=== PATIENT | male | born 1950 | race Caucasian/White ===

== ENCOUNTER 2018-01-09 11:54 | Inpatient (IN) | payer MEDICARE, OTHER ==
[~2018-01-09] VITALS: Ht 190.5 cm; Wt 92.1 kg
[2018-01-09] MEDS ORDERED: TEMA30CA PO (12:21)
[2018-01-09] MEDS ORDERED: OMEP20CA10 PO (12:21)
[2018-01-09] MEDS ORDERED: UBID100C PO (12:21)
[2018-01-09] MEDS ORDERED: RISP0.253 PO (12:21)
[2018-01-09] MEDS ORDERED: LEVE750T10 PO (12:21)
[2018-01-09] MEDS ORDERED: ACETAMINOPHEN 325 MG TABLET PO PRN (13:30)
[2018-01-09] MEDS ORDERED: ZOLPIDEM TARTRATE 5 MG TABLET PO PRN (13:30)
[2018-01-09] MEDS ORDERED: LORAZEPAM 0.5 MG TABLET PO PRN (13:30)
[2018-01-09] MEDS ORDERED: MAG HYDROX/AL HYDROX/SIMETH 30 ML UDC PO PRN (13:30)
[2018-01-09] MEDS ORDERED: MAGNESIUM HYDROXIDE 30 ML UDC PO PRN (13:30)
--- NOTE | 2018-01-09 14:35 | NUR ---
ADMITTED A 67 YEARS OLD MALE ON 515 FOR GD. PT. WANDERS IN THE NEIGHBORHOOD, HALLUCINATING, AGITATED AND NON COMPLIANT WITH CARE. PT. ARRIVED IN THE UNIT AMBULANCE AND TRANSPORTED VIA A GURNEY. UPON FACE TO FACE ASSESSMENT PT. IS ALERT/ ORIENTED X2, AMBULATORY, PT. IS WITH FLIGHT OF IDEAS AND WITH DISORGANIZED THOUGHTS, REFUSED TO SIGN THE ADMISSION PAPERS, SKIN ASSESSMENT DONE, V/S TAKEN AND CONTRABAND DONE. DR. ANDERS MADE AWARE OF THE ADMISSION AND WITH ORDERS. WALT BARNES AWARE OF THE ADMISSION AND RECONCILED MEDS. MARIBEL NOTIFIED ABOUT THE ADMISSION. WILL CONTINUE TO MONITOR FOR SAFETY.
--- NOTE | 2018-01-09 15:10 | NUR ---
AT ABOUT 1455 PT HAD SEIZURE IN THE DINING ROOM, CALLED RAPID RESPONSE. V/S TAKEN : BP 153/99, [place]. 80 AND OXYGEN SAT OF 93%. PT. HAD SEIZURE FOR 30 SECONDS DURATION. CALLED WALT BARNES AND ORDERED ATIVAN 1 MG IM X1 AND TO GIVE THE DOSE OF KEPPRA ONCE PT. IS AWARE. Addendum: 01/09/18 at 1558 by HESHAM GOLD RN TO GIVE KEPPRA ONCE PT. IS AWAKE. Addendum: 01/09/18 at 1745 by HESHAM GOLD RN SISTER MADE OF THE INCIDENT
[2018-01-09] MEDS ORDERED: LORAZEPAM INJ 2 MG/ML VIAL IM ONE (15:30)
[2018-01-09 15:45] VITALS: BP 153/99
[2018-01-09 16:00] VITALS: BP 116/79
[2018-01-09] MEDS ORDERED: LEVETIRACETAM (250 MG) 250 MG TABLET PO ONE (16:30)
--- NOTE | 2018-01-09 17:31 | NUR ---
WALT BARNES CAME IN THE UNIT AND EXAMINED THE PT.
[2018-01-09] MEDS: FAMOTIDINE (20 MG) 20 MG TABLET PO SCH (21:17)
[2018-01-09] MEDS: LEVETIRACETAM (250 MG) 250 MG TABLET PO SCH (21:17)
[2018-01-10 08:00] VITALS: BP 115/59
[2018-01-10 08:29] LABS: ALBUMIN 3.6 g/dL (3.4-5.0); CALCIUM, SERUM 9.1 mg/dL (8.5-10.1); POTASSIUM 3.9 mmol/L (3.5-5.1); TOTAL PROTEIN, SERUM 7.2 g/dL (6.4-8.2)
[2018-01-10] MEDS: LEVETIRACETAM (250 MG) 250 MG TABLET PO SCH ×2 (08:43→20:59)
[2018-01-10] MEDS: FAMOTIDINE (20 MG) 20 MG TABLET PO SCH ×2 (08:43→20:59)
[2018-01-10 16:03] VITALS: BP 137/83
[2018-01-10] MEDS: risperiDONE 1 MG TABLET PO SCH (16:41)
[2018-01-10 20:00] VITALS: BP 128/88
--- NOTE | 2018-01-10 20:00 | NUR ---
GPS RN NOTE: RECEIVED PATIENT AWAKE AND ORIENTED X 2 IN CHAIR IN TV ROOM. AMBULATORY WITH WALKER. PATIENT CONTINUES TO HAVE DISORGANIZED THOUGHTS AND AGITATED ABOUT AND REPEATING SELF ABOUT HIS SISTER HANGING UP WHEN HE CALLED HER TODAY. PER HIS REQUEST, ASSISTED TO CALL HER ON PHONE AGAIN WITH HIM AND HE SAID THE BROTHER IN LAW ANSWERED AND HUNG UP ON HIM. DENIES SI, HI, AND PAIN. WILL CONTINUE TO OFFER REALITY ORIENTATION NEEDED AND MONITOR Q 15 MINUTES FOR COMFORT AND SAFETY.
[2018-01-10] MEDS: DIVALPROEX SODIUM 500 MG TABLET.DR PO SCH (20:59)
--- NOTE | 2018-01-10 21:00 | NUR ---
PT REFUSED BLOOD DRAW FOR VERIFICATION CLERK TWICE. LAB CANCELLED ORDER AND REQUESTED REORDER FOR AM. WILL ALSO ENDORSE TO NEXT SHIFT.
[2018-01-11 08:00] VITALS: BP 135/66
[2018-01-11] MEDS: FAMOTIDINE (20 MG) 20 MG TABLET PO SCH ×2 (09:09→21:31)
[2018-01-11] MEDS: risperiDONE 1 MG TABLET PO SCH ×2 (09:09→17:21)
[2018-01-11] MEDS: DIVALPROEX SODIUM 500 MG TABLET.DR PO SCH ×2 (09:09→21:31)
[2018-01-11] MEDS: LEVETIRACETAM (250 MG) 250 MG TABLET PO SCH ×2 (10:54→21:30)
[2018-01-11 16:10] VITALS: BP 100/63
[2018-01-11 20:03] VITALS: BP 107/68
[2018-01-12 08:00] VITALS: BP 112/69
[2018-01-12] MEDS: risperiDONE 1 MG TABLET PO SCH ×2 (08:57→17:44)
[2018-01-12] MEDS: LEVETIRACETAM (250 MG) 250 MG TABLET PO SCH ×2 (08:58→21:26)
[2018-01-12] MEDS: DIVALPROEX SODIUM 500 MG TABLET.DR PO SCH ×2 (08:58→21:26)
[2018-01-12] MEDS: FAMOTIDINE (20 MG) 20 MG TABLET PO SCH ×2 (08:58→21:26)
--- NOTE | 2018-01-12 11:24 | NUR ---
[id number]: TOOK PICTURE OF LEFT FOOT WOUND POSSIBLY A CALUS AND BIG TOE ON THE LEFT FOOT HAS REDNESS. PT STATED, "I GOT THIS 20 YEARS AGO AND I PAID A LADY TO FILE IT DOWN." WOUND CONSULT ORDERED. SPOKE TO MAGAN WHO WILL REFER TO A VOLUNTEER PATIENT REPRESENTATIVE.
--- NOTE | 2018-01-12 13:50 | NUR ---
INITIAL DISCHARGE PLAN: Patient wishes to return home to [address] [facility] [address] [facility] [id number] . Per pt he is able to care for self and has been living in his apartment for 30 years. ARISTEO contacted pts sister Karol [phone] who stated that pt cannot care for himself at home due to him not taking his medication. Per pts sister she wishes for pt to be discharged to a SNF. ARISTEO will help form a safe and proper discharge in collaboration with .
[2018-01-12 16:09] VITALS: BP 116/60
--- NOTE | 2018-01-12 19:30 | NUR ---
GPS RN NOTE, RECEIVED PATIENT AWAKE AND IN BED, NO S/S OR COMPLAINTS OF PAIN AT THIS TIME. PATIENT IS DISPLAYING NO S/S OF APPARENT DISTRESS AT THIS TIME. PATIENT BREATHING IS UNLABORED WITH EQUAL RISE AND FALL CHEST. PATIENT IS ALERT AND ORIENTED X 2 ON ROOM AIR WITH A SPO2 97% . PATIENT IS CONFUSED AT TIMES, DISORGANIZED, COOPERATIVE, ANXIOUS AT TIMES, AND NEEDS REDIRECTION. PATIENT DENIES SUICIDE IDEATIONS AND HOMICIDAL IDEATIONS AT THIS TIME. PATIENT EDUCATED ON THE USE OF THE CALL STOKES. PATIENT BED SIDE RAILS UP X 2 FOR SAFETY, BED IS LOCKED, LOW, AND I WILL CONTINUE TO MONITOR AND MAINTAIN SAFETY WITH THE HELP OF STAFF.
[2018-01-12 19:56] VITALS: BP 102/42
--- NOTE | 2018-01-13 06:45 | NUR ---
WOUND CARE CONSULT WOUND CARE RECEIVED CONSULT FOR LEFT FOOT WOUND. WOUND CARE WILL DEFER CONSULT AND ALL TREATMENT PLANS TO SURGICAL TEAM. PATIENT WITH VALERIE AT 22, WILL SEE PRN.
[2018-01-13 08:00] VITALS: BP 139/68
[2018-01-13 08:10] VITALS: BP 139/68
[2018-01-13] MEDS: risperiDONE 1 MG TABLET PO SCH ×2 (08:47→17:28)
[2018-01-13] MEDS: FAMOTIDINE (20 MG) 20 MG TABLET PO SCH ×2 (08:47→20:43)
[2018-01-13] MEDS: NEOMY SULF/BACITRAC ZN/POLY 15 GM TUBE TP SCH (08:47)
[2018-01-13] MEDS: DIVALPROEX SODIUM 500 MG TABLET.DR PO SCH ×2 (08:47→20:43)
[2018-01-13] MEDS: LEVETIRACETAM (250 MG) 250 MG TABLET PO SCH ×2 (08:47→20:43)
--- NOTE | 2018-01-13 11:32 | NUR ---
ARISTEO received a phone call from [facility] field property loss specialist [phone] who informed SW that pts brother has mailed payment for pts rent for this month.
[2018-01-13 16:00] VITALS: BP 139/68
[2018-01-13 16:12] VITALS: BP 119/66
[2018-01-13 19:55] VITALS: BP 121/90
[2018-01-14 08:00] VITALS: BP 119/83
[2018-01-14] MEDS: FAMOTIDINE (20 MG) 20 MG TABLET PO SCH ×2 (08:40→21:57)
[2018-01-14] MEDS: DIVALPROEX SODIUM 500 MG TABLET.DR PO SCH ×2 (08:41→21:57)
[2018-01-14] MEDS: NEOMY SULF/BACITRAC ZN/POLY 15 GM TUBE TP SCH (08:41)
[2018-01-14] MEDS: risperiDONE 1 MG TABLET PO SCH ×2 (08:41→16:55)
[2018-01-14] MEDS: LEVETIRACETAM (250 MG) 250 MG TABLET PO SCH ×2 (08:41→21:57)
[2018-01-14 16:00] VITALS: BP 141/79
[2018-01-14 20:20] VITALS: BP 110/67
--- NOTE | 2018-01-14 21:30 | NUR ---
GPS RN NOTE, RECEIVED PATIENT AWAKE AND IN BED, NO S/S OR COMPLAINTS OF PAIN AT THIS TIME. PATIENT IS DISPLAYING NO S/S OF APPARENT DISTRESS AT THIS TIME. PATIENT BREATHING IS UNLABORED WITH EQUAL RISE AND FALL CHEST. PATIENT IS ALERT AND ORIENTED X 2 ON ROOM AIR WITH A SPO2 99% . PATIENT IS CONFUSED AT TIMES, DISORGANIZED, COOPERATIVE, ANXIOUS AT TIMES, AND NEEDS REDIRECTION. PATIENT DENIES SUICIDE IDEATIONS AND HOMICIDAL IDEATIONS AT THIS TIME. PATIENT EDUCATED ON THE USE OF THE CALL STOKES. PATIENT BED SIDE RAILS UP X 2 FOR SAFETY, BED IS LOCKED, LOW, AND I WILL CONTINUE TO MONITOR AND MAINTAIN SAFETY WITH THE HELP OF STAFF.
[2018-01-15 08:00] VITALS: BP 131/82
[2018-01-15] MEDS: risperiDONE 1 MG TABLET PO SCH (08:58)
[2018-01-15] MEDS: FAMOTIDINE (20 MG) 20 MG TABLET PO SCH (08:58)
[2018-01-15] MEDS: LEVETIRACETAM (250 MG) 250 MG TABLET PO SCH (08:58)
[2018-01-15] MEDS: NEOMY SULF/BACITRAC ZN/POLY 15 GM TUBE TP SCH (09:02)
--- NOTE | 2018-01-15 09:21 | NUR ---
DR. ANDERS GAVE AN ORDER TO D/C HOLD AND D/C TODAY AND TO FOLLOW UP WITH PSYCH AND MEDICAL DOCTORS.
[2018-01-15] MEDS: DIVALPROEX SODIUM 500 MG TABLET.DR PO SCH (09:58)
--- NOTE | 2018-01-15 13:15 | NUR ---
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 cash. supervisor [employer] li agrees with discharge plan. [place] [id number] [facility] [address] [facility] [address]. pts' sister efra has been notified. he is alert oriented x 3 and ambulatory. calm and cooperative. denies s/i and/or h/i at time of discharge. no acute distress noted. vital sign stable condition. exitcare completed. medication prescription prescribed. skin care assessed and pictures taken. belongings returned. going on via taxi. left in stable condition.
--- NOTE | 2018-01-15 13:19 | NUR ---
DISCHARGE NOTE: Pt was discharged at 1:00pm via [facility] taxi voucher home to [address] [facility] [address] [facility] [address]. Pts sister Karol has been notified [phone] and does not agree with discharge plan as she feels pt should be discharged to [facility]. Pt is alert and oriented x4 and was able to participate in discharge planning with MD and SW. Pts mood was happy with congruent affect, pt denied visual/auditory hallucinations and denied suicidal/homicidal ideations. Pt will schedule a follow up appointment with Psychiatrist: Dr. Jose Luis Miles [address] [place] [address] [phone] and Customer Relations Advisor: Dr. Biju Mccormick [address] [place] [address] [phone]. The multidisciplinary exitcare form was done, printed, signed, and given to the patient.
== END 2018-01-15 13:15 | disposition home or self-care (01) | DRG 885 ==
LOC: GPS 11:54
PROVIDERS: ADMIT Psychiatry & Neurology Psychiatry; ATTEND Psychiatry & Neurology Psychiatry
DX: F31.64 Bipolar disorder, current episode mixed, severe, with psychotic features (principal); E43 Unspecified severe protein-calorie malnutrition; Z68.41 Body mass index [BMI] 40.0-44.9, adult; K21.9 Gastro-esophageal reflux disease without esophagitis; G40.909 Epilepsy, unspecified, not intractable, without status epilepticus; F03.90 Unspecified dementia, unspecified severity, without behavioral disturbance, psychotic disturbance, mood disturbance, and anxiety; E66.01 Morbid (severe) obesity due to excess calories; F41.9 Anxiety disorder, unspecified; I10 Essential (primary) hypertension; G47.00 Insomnia, unspecified; E11.9 Type 2 diabetes mellitus without complications; Z73.6 Limitation of activities due to disability; L85.3 Xerosis cutis; L84 Corns and callosities; M21.42 Flat foot [pes planus] (acquired), left foot; M21.40 Flat foot [pes planus] (acquired), unspecified foot; Z79.899 Other long term (current) drug therapy
CPT/HCPCS: 36415; 80053-TC; 80061-TC; 80164-TC; 82962-TC; J2060

== ENCOUNTER 2019-02-22 10:24 | Inpatient (IN) | payer MEDICAID, MEDICARE, OTHER ==
[~2019-02-22] VITALS: Ht 175.3 cm; Wt 87.1 kg
[2019-02-22] VITALS (24 sets, daily range): BP systolic 106–150; BP diastolic 69–94
[~2019-02-22 10:24] MED LIST: LEVE750T10 PO; OMEP20CA11 PO; RISP0.253 PO; TEMA30CA PO; UBID100C PO
--- NOTE | 2019-02-22 10:28 | NUR ---
PATIENT BIBRA FROM SNF FOR ALTERED MENTAL STATUS, PATIENT PREPARED FOR INTUBATION, DUE TO SHORTNESS OF BREATH. DR. FRANCES AT BEDSIDE.
--- NOTE | 2019-02-22 10:32 | NUR ---
PATIENT INTUBATED BY DR. FRANCES, ET SIZE 7.5, 23CM ON THE LIP, BILATERAL EQUAL CHEST RISE AND + BREATH SOUNDS. PATIENT SKIN COLOR CHANGED. APPLIED BILATERAL SOFT WRIST RESTRAINTS.
[2019-02-22] MEDS ORDERED: CARV3.12 PO (10:33)
[2019-02-22] MEDS ORDERED: DIVA-78 PO (10:33)
[2019-02-22] MEDS ORDERED: POTA20TA83 PO (10:33)
[2019-02-22] MEDS ORDERED: RIVA10TA PO (10:33)
[2019-02-22] MEDS ORDERED: FURO-144 PO (10:33)
[2019-02-22] MEDS ORDERED: SANDOZ PO (10:33)
[2019-02-22] MEDS ORDERED: RISP2TAB5 PO (10:33)
[2019-02-22] MEDS: PROPOFOL 100 ML IV PRN ×2 (10:33→17:50)
[2019-02-22] MEDS ORDERED: PROPOFOL 100 ML ONE (10:33)
[2019-02-22] MEDS ORDERED: FAMO20TA8 PO (10:33)
[2019-02-22] MEDS ORDERED: TAMS-12 PO (10:33)
[2019-02-22] MEDS ORDERED: LEVE500T20 PO (10:33)
--- NOTE | 2019-02-22 10:33 | NUR ---
PROPOFOL IV DRIP INITIATED, WILL TITRATE TO EFFECT.
--- NOTE | 2019-02-22 10:35 | NUR ---
PATIENT TAKEN TO CT WITH RT AND RN, VIA ACLS PROTOCOL.
--- NOTE | 2019-02-22 10:35 | NUR ---
Paged Dr. Bk KIRBY seasoner hand for Dr. Keller, awaiting to call back.
[2019-02-22 10:44] LABS: BASOPHILS % (AUTO) 0.4 % (0.0-2.0); EOSINOPHILS % (AUTO) 0.1 % (0.0-6.0); HEMATOCRIT 41 % (39-51); HEMOGLOBIN 13.2 g/dL (13.5-17.5); LYMPHOCYTES # (AUTO) 0.4 /CMM (0.8-4.8); LYMPHOCYTES % (AUTO) 4.4 % (20.0-44.0); MEAN CORPUSCULAR HGB CONC 33 g/dl (31.0-36.0); MEAN CORPUSCULAR VOLUME 100 fL (80-96); MONOCYTES # (AUTO) 1.4 /CMM (0.1-1.30); MONOCYTES % (AUTO) 16.1 % (2.0-12.0); NEUTROPHILS # (AUTO) 6.7 /CMM (1.8-8.9); PLATELET COUNT (AUTO) 185 /CMM (150-450); RED BLOOD CELL COUNT(AUTO) 4.05 MIL/uL (4.5-6.0); WHITE BLOOD COUNT (AUTO) 8.5 K/uL (4.3-11.0)
--- NOTE | 2019-02-22 10:46 | NUR ---
room 254
[2019-02-22 10:53] LABS: CALCIUM, SERUM 8.6 mg/dL (8.5-10.1); CARBON DIOXIDE 21 mmol/L (21-32); CHLORIDE 92 mmol/L (98-107); CREATININE 1.6 mg/dL (0.6-1.3); GLUCOSE 98 mg/dL (74-106); POTASSIUM 5.2 mmol/L (3.5-5.1); SODIUM SERUM 127 mmol/L (136-145); UREA NITROGEN, BLOOD 21 mg/dL (7-18)
--- NOTE | 2019-02-22 10:55 | NUR ---
PATIENT ON PROPOFOL IV 20MCG AT THIS TIME. EFFECTIVE, VITALS STABLE.
[2019-02-22 11:00] LABS: ALANINE AMINOTRANSFERASE 265 U/L (12-78); ALBUMIN 3.3 g/dL (3.4-5.0); ALKALINE PHOSPHATASE 168 U/L (46-116); ASPARTATE AMINOTRANSFERASE 311 U/L (15-37); BILIRUBIN,DIRECT 2.4 mg/dL (0.0-0.2); BILIRUBIN,TOTAL 3.5 mg/dL (0.2-1.0); TOTAL PROTEIN, SERUM 7.2 g/dL (6.4-8.2)
[2019-02-22] MEDS ORDERED: ETOMIDATE 2 MG/ML VIAL IV ONE (11:00)
[2019-02-22] MEDS ORDERED: SUCCINYLCHOLINE CHLORIDE 20 MG/ML VIAL IV ONE (11:00)
[2019-02-22 11:04] LABS: APPEARANCE,URINE Slightly Cloudy (CLEAR); BILIRUBIN,URINE MODERATE (NEGATIVE); BLOOD, URINE Small Ery/uL (NEGATIVE); COLOR,URINE Amber (YELLOW); KETONES,URINE Trace (NEGATIVE); LEUKOCYTE ESTERASE ,URINE Negative (NEGATIVE); NITRITE, URINE Negative (NEGATIVE); PH,URINE 5.5 (5.0-8.0); PROTEIN,URINE 100 mg/dl (NEGATIVE); UGLUCOSE Negative (NEGATIVE)
[2019-02-22 11:09] LABS: BACTERIA,URINE Few /HPF (None Seen); SQUAMOUS EPITHELIAL CELL,UR Rare /HPF (None Seen)
--- NOTE | 2019-02-22 11:09 | NUR ---
RT NOTE PT INTUBATED PER MD FRANCES ORDER. 7.5 ETT 23 CM AT LIP. ETT SECURE. CUFF INFLATED. VENTILATOR SETTINGS FOLLOW AC 16 600 100% +5. ALARMS SET PER PROTOCOL AND AUDIBLE. VENT PLUGGED IN TO RED OUTLET. AMBU BAG AT BED SIDE. NO DISTRESS NOTED. Addendum: 02/22/19 at 1114 by YONI FISCHER RT Amended: Links added.
[2019-02-22] MEDS ORDERED: PIPERACILLIN /TAZOBACTAM 3.375 G in IV D5W 50 ML IV ONE (11:30)
[2019-02-22] MEDS ORDERED: VANCOMYCIN 1 GM in IV D5W 250 ML IV ONE (11:30)
[2019-02-22 11:46] LABS: ABG BASE EXCESS -8.7 mmol/L; ABG OXYGEN SATURATION 99.6 % (92.0-98.5); ABG PCO2 38.6 mmHg (35.0-45.0); ABG PH 7.274 (7.350-7.450); ABG PO2 455.8 mmHg (75.0-100.0); AaDO2 218.6 mmHg; COHb 0.7 % (0.5-1.5); MetHb 0.4 % (0.0-1.5); O2Hb 98.5 % (94.0-97.0); PEEP,BG 5 cm H2O; SITE, ABG Right Radial; VT, ABG 600 mL
--- NOTE | 2019-02-22 11:53 | NUR ---
REPORT GIVEN TO DANIEL DYKES FOR JULIANN.
[2019-02-22] MEDS ORDERED: ZOLPIDEM TARTRATE 5 MG TABLET PO PRN (12:00)
[2019-02-22] MEDS ORDERED: ONDANSETRON HCL/PF 4 MG/2 ML VIAL IVP PRN (12:00)
[2019-02-22] MEDS ORDERED: MAGNESIUM HYDROXIDE 30 ML UDC PO PRN (12:00)
[2019-02-22] MEDS ORDERED: Z GUARD REMEDY 2 OZ OINT TP PRN (12:00)
[2019-02-22] MEDS ORDERED: PANTOPRAZOLE 40 MG VIAL IV SCH (12:00)
[2019-02-22] MEDS ORDERED: HYDROCODONE/APAP 5/325MG 1 EACH TABLET PO PRN (12:00)
[2019-02-22] MEDS ORDERED: LORAZEPAM INJ 2 MG/ML VIAL IV PRN (12:00)
--- NOTE | 2019-02-22 12:23 | NUR ---
PATIENT TRANSFERRED TO ICU ROOM 259 VIA ACLS PROTOCOL. RT AT BEDSIDE.
[2019-02-22] MEDS ORDERED: IV NS 0.9% 1,000 ML IV PRN (12:33)
[2019-02-22] MEDS: IV NS 0.9% 1,000 ML IV SCH ×2 (13:41→17:32)
[2019-02-22 13:44] LABS: LYMPHOCYTES % (MANUAL) 4 % (16-48); MONOCYTES % (MANUAL) 20 % (0-11.0); NEUTROPHILS % (MANUAL) 76 (42-76)
--- NOTE | 2019-02-22 13:50 | NUR ---
RT PATIENT REC'D TRANSFER FROM ER. PATIENT ORALLY INTUBATED ON [facility] WITH ORDERED SETTINGS. VENT ALARMS CHECKED + AUDIBLE. 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 PATIENT SUCTIONED WITH SMALL AMT PALE SEMITHICK SECRETIONS.. AMBU BAG AT HOB Addendum: 02/22/19 at 1529 by RAJAN DOLL RT Amended: Links added.
[2019-02-22] MEDS: DIVALPROEX SODIUM 500 MG TABLET.DR PO SCH (17:00)
[2019-02-22] MEDS: CARVEDILOL 3.125 MG TABLET PO SCH (17:00)
[2019-02-22] MEDS ORDERED: LEVETIRACETAM (500MG) 750 MG in IV NS 0.9% 100 ML IV SCH (17:00)
--- NOTE | 2019-02-22 18:07 | NUR ---
RN NOTES 1300-RECEIVED PATIENT FROM er VIA GURNEY. PATIENT ORALLY INTUBATED ON AC MODE OF VENTILATION. PATIENT ALSO ON PROPOFOL DRIP AT 20 MCG/KG/MIN. SAFETY MAINTAINED 1500-TITRATED PROPOFOL DRIP. PATIENT REPOSITIONED FOR COMFORT.NO SIGN OF PAIN. SEEN BY PELEG EARLIER. 1600-SEVERAL ATTEMPTS TO INSERT NGT/OGT, UNABLE TO PASS FEEDING TUBE . DR ALBA NOTIFIED PATIENT HAS KEPPRA ORDERED VIA NGT. 1800-PATIENT SISTER, AMRIK ANGUIANO, CALLED. UPDATED HER OF PATIENT STATUS. ENCOURAGED HER TO CALL TIME TO TIME.
--- NOTE | 2019-02-22 19:00 | NUR ---
RECEIVED PATIENT ORALLY INTUBATED ON AC MODE,SEDATED,+ MILD COUGH WHEN SUCTIONED,WILL TITRATE PROPOFOL DRIP TO SAS=3. WITHDRAWS TO PAIN. EXTREMELY EDEMATOUS LOWER EXTREMITIES ( FROM THIGHS TO BILATERAL FEET).NOT IN ANY DISTRESS,BREATHING NON LABORED. SEIZURE PRECAUTION/ ASPIRATION PRECAUTION IMPLEMENTED.COMFORT CARE DONE.
--- NOTE | 2019-02-22 19:15 | NUR ---
SEEN BY NEURO Chase HEIN ,[facility]
[2019-02-22] MEDS ORDERED: LEVETIRACETAM (500MG) 750 MG in IV NS 0.9% 100 ML IV ONE (20:00)
[2019-02-22] MEDS ORDERED: LEVETIRACETAM (250 MG) 250 MG TABLET PO SCH (21:00)
--- NOTE | 2019-02-22 21:00 | NUR ---
ATTEMPTED NGT AND OGT INSERTION,UNSUCCESSFUL AFTER SEVERAL TRY. WILL RE ATTEMPT LATER, PATIENT STARTED BLEEDING A LITTLE NASALLY(INR=4.1),WILL RE ATTEMPT ORAL INSERTION AGAIN LATER.
[2019-02-22] MEDS: FAMOTIDINE/PF INJ 20 MG/2 ML VIAL IV SCH (21:04)
[2019-02-22] MEDS: LEVETIRACETAM (500MG) 750 MG in IV NS 0.9% 100 ML IV SCH (21:05)
[2019-02-22] MEDS: TAMSULOSIN 0.4 MG CAP.SR.24H PO SCH (22:00)
--- NOTE | 2019-02-22 22:00 | NUR ---
UNABLE TO GIVE PO MEDS, NO NGT/OGT DUE TO UNSUCCESSFUL INSERTION EVEN BY THE DAYSHIFT RN.
[2019-02-23] VITALS (28 sets, daily range): BP systolic 95–128; BP diastolic 59–80
--- NOTE | 2019-02-23 | NUR ---
REMAINS STABLE,NOT IN ANY DISTRESS, OCCASIONALLY COUGHS AND GAGS AND TRIES TO GET OFF WRIST RESTRAINTS,WILL TITRATE PROPOFOL DRIP . ATTEMPTED OGT AND NGT INSERTION AGAIN THIS TIME BY CHARGE NURSE ,TUBE KEEPS COILING .
--- NOTE | 2019-02-23 02:00 | NUR ---
AM CARE DONE, SACRAL SKIN CARE DONE. TOLERATED TURNING WELL, NO SOB NOTED.PATIENT MORE RESPONSIVE, COUGHING ,GRIMACING TO PAIN.
[2019-02-23] MEDS: PROPOFOL 100 ML IV PRN ×4 (04:01→23:42)
[2019-02-23 04:11] LABS: BASOPHILS % (AUTO) 0.2 % (0.0-2.0); HEMATOCRIT 41 % (39-51); HEMOGLOBIN 13.4 g/dL (13.5-17.5); LYMPHOCYTES # (AUTO) 0.7 /CMM (0.8-4.8); MEAN CORPUSCULAR HGB CONC 33 g/dl (31.0-36.0); MEAN CORPUSCULAR VOLUME 97 fL (80-96); MONOCYTES # (AUTO) 1.6 /CMM (0.1-1.30); MONOCYTES % (AUTO) 11.9 % (2.0-12.0); NEUTROPHILS # (AUTO) 11.3 /CMM (1.8-8.9); NEUTROPHILS % (AUTO) 82.9 % (43.0-81.0); PLATELET COUNT (AUTO) 151 /CMM (150-450); RED BLOOD CELL COUNT(AUTO) 4.18 MIL/uL (4.5-6.0); WHITE BLOOD COUNT (AUTO) 13.6 K/uL (4.3-11.0)
[2019-02-23 04:30] LABS: BILIRUBIN,TOTAL 3.5 mg/dL (0.2-1.0); CALCIUM, SERUM 8.8 mg/dL (8.5-10.1); CREATININE 1.4 mg/dL (0.6-1.3); MAGNESIUM 2.1 mg/dL (1.8-2.4); PHOSPHORUS 4.6 mg/dL (2.5-4.9); POTASSIUM 4.3 mmol/L (3.5-5.1); TOTAL PROTEIN, SERUM 6.6 g/dL (6.4-8.2)
[2019-02-23 04:38] LABS: THYROID STIMULATING HORMONE 1.622 uIU/mL (0.358-3.74); URIC ACID 12.1 mg/dL (2.6-7.2)
--- NOTE | 2019-02-23 05:30 | NUR ---
STATUS UNCHANGED,NO SEIZURE ACTIVITY ALL NIGHT,REMAINS SEDATED ON PROPOFOL DRIP BUT EASILY AROUSABLE.ATTEMPTED TO INSERT NGT/OGT AGAIN ,UNSUCCESSFUL,TUBE COILING .
--- NOTE | 2019-02-23 07:00 | NUR ---
MORE RESPONSIVE THIS MORNING,GETTING A LITTLE RESTLESS AT TIMES, WITH STRONG COUGH AND GAG, MOVING ALL EXTREMITIES,MAINTAINED ON BILATERAL SOFT WRIST RESTRAINTS. NO SEIZURE EPISODE ALL NIGHT. REPORT GIVEN TO EMMY DYKES.
--- NOTE | 2019-02-23 07:15 | NUR ---
RN INITIAL NOTES RECEIVED PT INTUBATED, ON VENT. NO RESPIRATORY DISTRESS NOTED. NO SOB NOTED. NO SIGNS OF PAIN NOTED. HOB ELEVATED. SEDATED, ON DIPRIVAN AT 15MCG/KG/MIN. WILL TITRATE ACCORDINGLY. IV LINES IN PLACE. FC IN PLACE. NO HEMATURIA NOTED. BLE ELEVATED. BLE EDEMA NOTED. WILL CONTINUE TO MONITOR
--- NOTE | 2019-02-23 07:46 | NUR ---
PT RECEIVED IN ICU ORALLY INTUBATED ON MECHANICAL VENT W/ NOTED SETTINGS. VENT IN RED OUTLET, AMBUBAG AT BEDSIDE, VENT ALARMS CHECKED AND AUDIBLE. PT SX'ED AND LAVAGED PRN, BS EQUAL DIMINISHED. ETT PATENT, SECURED WITH ANCHOFAST, CLEAN AND DRY. NO RESP DISTRESS NOTED. PLAN IS TO CONTINUE CARE UNDER CURRENT MD ORDERS AND MONITOR FOR CHANGES.
[2019-02-23] MEDS: FAMOTIDINE/PF INJ 20 MG/2 ML VIAL IV SCH (08:02)
--- NOTE | 2019-02-23 08:13 | NUR ---
WOUND CARE CONSULT: PT PRESENTS WITH IMMOBILITY, RASH TO BUTTOCKS, SACRAL SCARRING, FOOT AND TOE DRY WOUNDS/CALLUSES AND LEFT LATERAL LOWER LEG WOUND, ALL PRESENT ON ADMISSION. 4+ PITTING EDEMA NOTED TO LOWER LEGS. RECOMMEND DPM CONSULT. DR DIAZ AWARE OF CONSULT REQUEST. PT ON FIRST STEP [facility]. ALL SKIN PROTECTION RECOMMENDATIONS DISCUSSED WITH NURSING STAFF. DEFER TO DPM FOR LOWER EXTREMITIES. WILL SEE PRN. IN AGREEMENT WITH PLAN OF CARE. CURRENT VALERIE SCORE IS 7. PT IS INTUBATED. Addendum: 02/23/19 at 0815 by FABIAN HIGGINS WNDNU Amended: Links added.
[2019-02-23 08:27] LABS: ABG BASE EXCESS -3.2 mmol/L; ABG PH 7.431 (7.350-7.450); AaDO2 84.6 mmHg; COHb 0.8 % (0.5-1.5); MetHb 0.4 % (0.0-1.5); O2Hb 97.8 % (94.0-97.0); SITE, ABG Right Radial; VENT MODE, BG AC 16 600 40% +5
[2019-02-23] MEDS: LEVETIRACETAM (500MG) 750 MG in IV NS 0.9% 100 ML IV SCH ×2 (08:33→21:25)
[2019-02-23] MEDS: FUROSEMIDE 40 MG/4 ML VIAL IV SCH ×3 (08:34→16:15)
[2019-02-23] MEDS: CARVEDILOL 3.125 MG TABLET PO SCH ×2 (08:34→16:12)
[2019-02-23] MEDS: DIVALPROEX SODIUM 500 MG TABLET.DR PO SCH (08:34)
[2019-02-23] MEDS ORDERED: LEVETIRACETAM (500MG) 750 MG in IV NS 0.9% 100 ML IV ONE (09:00)
[2019-02-23] MEDS ORDERED: ZOSYN IVPB 3.375 G in IV D5W 50ml IV ONE (10:00)
[2019-02-23] MEDS: CLOTRIMAZOLE 1% 15 GM TUBE TP SCH ×2 (11:22→16:13)
[2019-02-23] MEDS: VANCOMYCIN 1.25 GM in IV D5W 500 ML IV SCH ×2 (11:23→23:52)
[2019-02-23] MEDS ORDERED: FEE PK DOSING 1 MIN EA MC ONE (11:41)
[2019-02-23] MEDS ORDERED: VALPROATE 500 MG in IV D5W 100 ML IV ONE (12:00)
[2019-02-23] MEDS ORDERED: VALPROATE 500 MG in IV NS 0.9% 100 ML IV ONE (12:00)
--- NOTE | 2019-02-23 12:15 | NUR ---
RN NOTES [address] LORENZANA REGARDING VALPROIC LEVEL, 31. NO SEIZURE ACTIVITY NOTED. UNABLE TO INSERT NGT OR OGT. PER , [facility] WILL DO ROUNDS TODAY AND CHANGE DEPAKOTE TO IV. 0900 SEEN AND EXAMINED BY DR ARMENDARIZ. PT INTUBATED, ON VENT. NO RESPIRATORY DISTRESS NOTED. NO SOB NOTED. HOB ELEVATED. OFF SEDATION. PT OPENS EYES AND FOLLOW SIMPLE COMMANDS. AWARE OF LATEST ABG RESULT. WILL CONTINUE TO MONITOR 0930 SEEN AND EXAMINED BY DR ALBA. AWARE OF LATEST LAB VALUES AND IMAGING STUDIES. ORDERED CT ABDOMEN/PELVIS WO AND NM HIDA SCAN. WILL CONTINUE TO MONITOR 1200 SEEN AND EXAMINED BY [facility]. REVIEWED ALL MEDS AND LAB VALUES. NO SEIZURE ACTIVITY NOTED. ORDERED VALPROATE 500MG IV Q12. WILL CONTINUE TO MONITOR
[2019-02-23] MEDS ORDERED: PIPERACILLIN /TAZOBACTAM 3.375 G in IV D5W 100 ML IV SCH (14:00)
--- NOTE | 2019-02-23 15:26 | NUR ---
Pt taken to [facility] w/ RN. Placed on HT70 vent for transport and procedure. Ambubag, pulse ox and library monitor at bedside at all times. No resp distress noted. Pt back in room Addendum: 02/23/19 at 1527 by DALLAS CÁRDENAS RT Amended: Links added.
[2019-02-23] MEDS ORDERED: PANTOPRAZOLE 40 MG VIAL IV SCH (15:30)
[2019-02-23 16:05] LABS: IRON, SERUM 50 ug/dl (50-175); TOTAL IRON BINDING CAPACITY 250 ug/dl (250-450)
[2019-02-23 16:40] LABS: AMYLASE 22 U/L (25-115); LIPASE 85 U/L (73-393)
[2019-02-23 16:43] LABS: FERRITIN 2639 ng/mL (8-388)
--- NOTE | 2019-02-23 18:25 | NUR ---
RN NOTES 1330 PT TOOK TO NUCLEAR MEDICINE FOR HIDA SCAN. PT INTUBATED, ON VENT. NO RESPIRATORY DISTRESS NOTED. NO SOB NOTED. CONNECTED TO MONITOR. PT STABLE FOR TRANSPORT. RT AND RN ACCOMPANIED PT. 1520 PT BACK FROM NUCLEAR MEDICINE. IN STABLE CONDITION. 1730 PT TOOK TO NUCLEAR MEDICINE FOR DELAYED TEST FOR PANCREAS. PT INTUBATED, ON VENT. NO RESPIRATORY DISTRESS NOTED. NO SOB NOTED. CONNECTED TO MONITOR. PT STABLE FOR TRANSPORT. RT AND RN ACCOMPANIED PT. 1820 PT BACK FROM NUCLEAR MEDICINE. IN STABLE CONDITION.
[2019-02-23] MEDS: PANTOPRAZOLE 40 MG VIAL IV SCH (18:29)
[2019-02-23] MEDS: PIPERACILLIN /TAZOBACTAM 3.375 G in IV D5W 100 ML IV SCH (18:29)
--- NOTE | 2019-02-23 18:45 | NUR ---
RN CLOSING NOTES PT REMAINS INTUBATED, ON VENT. NO RESPIRATORY DISTRESS NOTED. NO SOB NOTED. NO SIGNS OF PAIN NOTED. KEPT HOB ELEVATED. PT SEDATED, ON DIPRIVAN AT 15MCG/KG/MIN. TITRATED ACCORDINGLY. PT KEPT CLEAN AND DRY. REPOSITIONED Q2. TX PROVIDED ORDERED. KEPT BLE ELEVATED. KEPT COMFORTABLE. WILL ENDORSE FOR CONTINUITY OF CARE.
--- NOTE | 2019-02-23 20:00 | NUR ---
RN NOTES INFORMED NEPTALI CARBONE AND DR. SOSA REGARDING HIDA SCAN RESULT. NNO
--- NOTE | 2019-02-23 20:10 | NUR ---
RN NOTES RECEIVED PATIENT SEDATED ON BED WITH ETT 7.5 AND 25 CM AT LIP CONNECTED TO VENT SETTING AC 16 TV 600 FIO2 40% AND PEEP 5 TOLERATED WELL SATURATION 100%. AFIB UNCONTROLLED WITH BBB ON TELE MONITOR. IV SITE ON RFA G 20 RUNNING WITH DIPRIVAN @ 15 MCG/KG/MIN TITRAED ORDERED. WITH LEFT WRIST G 20 WITH ATB ONGOING. BILATERAL SOFT WRIST RESTRAINT KEPT IN PLACED CIRCULATION CHECKED. ZIMMER CATH OFF FRO THE FLOOR DRAINED IWTH YELLOW COLOR URINE. TURN AND REPOSITION FOR SKIN MGMT. OFFLOADED EXT WITH PILLOWS. KEPT PT CLEAN AND DRY. WILL ENDORSED CONTINUITY OF CARE.
[2019-02-23] MEDS: VALPROATE 500 MG in IV D5W 100 ML IV SCH (20:39)
[2019-02-23] MEDS: MUPIROCIN OINT 2% 22 GM TUBE SCH (20:40)
--- NOTE | 2019-02-23 21:01 | NUR ---
RECEIVED PT ON VENT INTUBATED 7.5 ETT SECURED AT 24CM AT THE LIP. NO DISTRESS. PT TOLERATING VENT SETTINGS. SX'D AND LAVAGE FOR SML AMT OF THIN WHITE SECRETIONS. VENT ALARMS SET AND AUDIBLE. AMBU BAG AT BEDSIDE. WILL CONTINUE TO MONITOR. Addendum: 02/23/19 at 2102 by DENISA LÓPEZ RT Amended: Links added.
[2019-02-23] MEDS: TAMSULOSIN 0.4 MG CAP.SR.24H PO SCH (21:25)
[2019-02-24] VITALS (27 sets, daily range): BP systolic 87–116; BP diastolic 57–85
[2019-02-24] MEDS: PIPERACILLIN /TAZOBACTAM 3.375 G in IV D5W 100 ML IV SCH ×2 (01:45→09:44)
[2019-02-24 04:20] LABS: BASOPHILS % (AUTO) 0.2 % (0.0-2.0); EOSINOPHILS % (AUTO) 0.2 % (0.0-6.0); HEMATOCRIT 36 % (39-51); LYMPHOCYTES # (AUTO) 0.7 /CMM (0.8-4.8); LYMPHOCYTES % (AUTO) 7.7 % (20.0-44.0); MEAN CORPUSCULAR HGB CONC 33 g/dl (31.0-36.0); MEAN CORPUSCULAR VOLUME 96 fL (80-96); MONOCYTES # (AUTO) 1.3 /CMM (0.1-1.30); MONOCYTES % (AUTO) 13.4 % (2.0-12.0); NEUTROPHILS # (AUTO) 7.5 /CMM (1.8-8.9); NEUTROPHILS % (AUTO) 78.5 % (43.0-81.0); PLATELET COUNT (AUTO) 129 /CMM (150-450); RED BLOOD CELL COUNT(AUTO) 3.77 MIL/uL (4.5-6.0); WHITE BLOOD COUNT (AUTO) 9.5 K/uL (4.3-11.0)
[2019-02-24 04:37] LABS: ALBUMIN 2.6 g/dL (3.4-5.0); BILIRUBIN,TOTAL 2.3 mg/dL (0.2-1.0); CALCIUM, SERUM 8.1 mg/dL (8.5-10.1); CREATININE 1.1 mg/dL (0.6-1.3); MAGNESIUM 1.6 mg/dL (1.8-2.4); PHOSPHORUS 2.4 mg/dL (2.5-4.9); POTASSIUM 3.1 mmol/L (3.5-5.1); TOTAL PROTEIN, SERUM 5.8 g/dL (6.4-8.2)
[2019-02-24 04:39] LABS: ALBUMIN 2.6 g/dL (3.4-5.0); BILIRUBIN,DIRECT 1.4 mg/dL (0.0-0.2); BILIRUBIN,TOTAL 2.3 mg/dL (0.2-1.0); TOTAL PROTEIN, SERUM 5.8 g/dL (6.4-8.2)
[2019-02-24] MEDS: PROPOFOL 100 ML IV PRN (05:19)
--- NOTE | 2019-02-24 05:40 | NUR ---
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 NO SIGNIFICANT CHANGES THROUGHOUT THE SHIFT. ETT AND VENT SETTING TOLERATED WELL, SUCTIONED BY RT AND RN. REMAINED A-FIB WITH BBB AND OCCASIONAL PVC'S ON TELE MONITOR. SEDATED WITH DIPRIVAN TITRATED PROTOCOL. SATURATION 100% F/C DRAINED ADEQ.WITH YELLOW SEDIMENTED COLOR URINE. NO BM TODAY. TURN AND REPOSITIONED Q2H AND PRN. TREATMENT DONE ORDERED FOR ANY SKIN ISSUES AFTER BEDBATH. KEPT PATIENT CLEAN AND DRY.WILL ENDORSE CONTINUITY OF CARE.
--- NOTE | 2019-02-24 07:15 | NUR ---
RN INITIAL NOTES RECEIVED PT INTUBATED, ON VENT. NO RESPIRATORY DISTRESS NOTED. NO SOB NOTED. NO SIGNS OF PAIN NOTED. HOB ELEVATED. SEDATED, ON DIPRIVAN AT 20MCG/KG/MIN. WILL TITRATE ACCORDINGLY. IV LINES IN PLACE. FC IN PLACE. NO HEMATURIA NOTED. BLE ELEVATED. BLE EDEMA NOTED. WILL CONTINUE TO MONITOR
[2019-02-24] MEDS: CLOTRIMAZOLE 1% 15 GM TUBE TP SCH ×2 (08:06→16:09)
[2019-02-24] MEDS: MUPIROCIN OINT 2% 22 GM TUBE SCH ×2 (08:06→20:24)
[2019-02-24] MEDS: CARVEDILOL 3.125 MG TABLET PO SCH ×2 (08:06→16:09)
[2019-02-24] MEDS: LEVETIRACETAM (500MG) 750 MG in IV NS 0.9% 100 ML IV SCH ×2 (08:42→20:22)
[2019-02-24] MEDS: VALPROATE 500 MG in IV D5W 100 ML IV SCH ×2 (08:42→20:23)
[2019-02-24] MEDS ORDERED: POTASSIUM PHOSPHATE MM 15 MMOL in IV D5W 250 ML IV SCH (09:00)
[2019-02-24 09:17] LABS: ABG BASE EXCESS 3.1 mmol/L; ABG OXYGEN SATURATION 98.2 % (92.0-98.5); ABG PCO2 30.9 mmHg (35.0-45.0); ABG PO2 113.4 mmHg (75.0-100.0); AaDO2 64.2 mmHg; COHb 0.6 % (0.5-1.5); O2Hb 96.6 % (94.0-97.0); SITE, ABG Right Radial
[2019-02-24] MEDS: Magnesium 1GM/D5W 100ML PREMIX 100 ML IV SCH ×2 (09:44→10:50)
[2019-02-24] MEDS: VANCOMYCIN 1.25 GM in IV D5W 500 ML IV SCH ×2 (10:01→22:09)
[2019-02-24 11:06] LABS: *SPE A/G RATIO 1.1 (0.7-1.7); *SPE ALBUMIN 3.1 g/dL (2.9-4.4); *SPE ALPHA-1-GLOBULIN 0.3 g/dL (0.0-0.4); *SPE ALPHA-2-GLOBULIN 0.5 g/dL (0.4-1.0); *SPE BETA GLOBULIN 0.9 g/dL (0.7-1.3); *SPE GLOBULIN, TOTAL 2.9 g/dL (2.2-3.9); *SPE M-SPIKE Not Observed g/dL (Not Observed); *SPEGAMMA GLOBULIN 1.3 g/dL (0.4-1.8)
[2019-02-24] MEDS: POTASSIUM PHOSPHATE MM 7.5 MMOL in IV D5W 100 ML IV SCH ×2 (11:15→14:01)
[2019-02-24 12:06] LABS: PTH, INTACT 46 pg/mL (15-65)
[2019-02-24] MEDS ORDERED: VALPROATE 1,000 MG in IV NS 0.9% 100 ML IV ONE (13:00)
[2019-02-24] MEDS: PANTOPRAZOLE 40 MG VIAL IV SCH (16:12)
--- NOTE | 2019-02-24 17:49 | NUR ---
RT PATIENT REMAINS STABLE THROUGHOUT SHIFT ON [facility] WITH NO CHANGES MADE PER MD. ETT SECURE AND IN PROPER POSITION. ALL SAFETY MEASURE CHECKED. CONT CURRENT PLAN OF CARE. Addendum: 02/24/19 at 1750 by RAJAN DOLL RT Amended: Links added.
--- NOTE | 2019-02-24 18:25 | NUR ---
RN CLOSING NOTES NO SIGNIFICANT CHANGE NOTED. PT REMAINS INTUBATED, ON VENT. NO RESPIRATORY DISTRESS NOTED. NO SOB NOTED. NO SIGNS OF PAIN NOTED. KEPT HOB ELEVATED. OFF SEDATION. PT COMFORTABLE. WEANING TRIAL DANYELL. PT KEPT CLEAN AND DRY. REPOSITIONED Q2. TX PROVIDED ORDERED. KEPT BLE ELEVATED. KEPT COMFORTABLE. WILL ENDORSE FOR CONTINUITY OF CARE.
--- NOTE | 2019-02-24 19:47 | NUR ---
RN NOTES RECEIVED PATIENT OFF FROM [facility]. WITH ETT CONNECTED TO VENT ON AC MODE. RATE 16 TV 600 FIO2 40% PEEP 5. NO ACUTE RESPIRATORY DISTRESS. PATIENT IS CALM. AWAKE BUT NON VERBAL, ABLE TO MOVE EXTREMITIES. ISOLATION PRECAUTION STRICTLY OBSERVED DUE TO MRSA NARES. AFIB ON TELE MONITOR WITH BBB AND OCCASIONAL PVC'S. IV SITE ON RFA , LEFT WRIST AND JENNA G 20 INTACT AND PATENT FLUSHED GOOD. DULCE. WRIST RESTRAINT KEPT IN PLACED, CIRCULATION CHECKED. ABDOMINAL DISTENTION NOTED. OGT AND NGT STILL UNABLE TO PLACE, PATIENT REMAINED NPO AT THIS TIME. KEPT PT CLEAN AND DRY OFFLOADED EXT WITH PILLOWS. HOB KEPT ELEVATED. TURN AND REPOSITIONED FOR SKIN MGMNT.
[2019-02-24] MEDS: TAMSULOSIN 0.4 MG CAP.SR.24H PO SCH (22:00)
[2019-02-25] VITALS (29 sets, daily range): BP systolic 93–140; BP diastolic 61–104
[2019-02-25 05:11] LABS: CALCIUM, SERUM 8.4 mg/dL (8.5-10.1); POTASSIUM 3.3 mmol/L (3.5-5.1)
--- NOTE | 2019-02-25 06:42 | NUR ---
RN NOTES PATIENT REMAINED CALM AND COOPERATIVE. EYES OPEN BUT NOT FOLLOWING COMMAND. AFEBRILE. NO SOB OR ACUTE RESP DISTRESS SHOWS. ETT AND VENT SETTING TOLERATED WELL WITHOUT SEDATION. NO COMPLAINED OF PAIN. VSS. BED BATH DONE SKIN CARE PROVIDED. SKIN REMAINED INTACT. ISOLATION PRECAUTION ALWAYS MET. KEPT PT CLEAN AND DRY. PATIENT WILL HAVE A WEANING TRIAL TODAY IN AM. ZIMMER CATH KEPT ON THE FLOOR. DRAINED VIA GRAVITY. WILL ENDORSED CONTINUITY OF CARE .
--- NOTE | 2019-02-25 07:38 | NUR ---
PT. RECEIVED ON VENT SUPPORT VIA ET TUBE WITH PARAMETERS BELOW: AC 16 VT 600 ML, FIO2 30% PEEP +5 BREATH SOUNDS CLEAR BILATERAL WITH AMBU BAG @ BEDSIDE. Addendum: 02/25/19 at 0740 by MARIELLA KWAN RT Amended: Links added.
--- NOTE | 2019-02-25 07:40 | NUR ---
VENT CHANGES BELOW ORDER FOR WEANING TRIAL: CPAP 5/ PS 15 @ 30% FIO2. PT. OPEN HIS EYES BUT UNABLE TO FOLLOW COMMANDS V/S POS VENT CHANGES: HR 107 TO 113, SPO2 98%, RR 13 - 17 BPM. Addendum: 02/25/19 at 0748 by MARIELLA KWAN RT Amended: Links added.
--- NOTE | 2019-02-25 07:40 | NUR ---
ICU/RN: VENT CHANGES MADE. CPAP 5/ PS 15 @ 30% FIO2. WILL CONTINUE TO MONITOR AND ASSESS.
--- NOTE | 2019-02-25 07:45 | NUR ---
ICU/RN INITIAL NOTES,AM RECEIVED BESIDE REPORT FROM NIGHT NURSE. PT OPENS EYES EYES, DOES NOT TRACK, DOES NOT FOLLOW COMMANDS. PT SINUS TACH ON TELE, VSS. PT INTUBATED ETT 7.5, 25 CM AT THE LIP. ON VENT SETTINGS ORDERED BY MD, NO ACUTE DISTRESS NOTED AT THIS TIME. ZIMMER CATH IN PLACE, DRAINING GARO URINE. PIV PATENT AND INTACT, NO S/S OF INFECTION OR INFILTRATION NOTED. ALL NEEDS WILL BE ATTENDED TO, SAFETY MEASURES TAKEN, BED IN LOW POSITION, SIDE RAILS UP, CALL LIGHT WITHIN REACH. WILL CONTINUE CARE.
[2019-02-25 08:06] LABS: AFP, TUMOR MARKER 1.5 ng/mL (0.0-8.3); CARBOHYDRATE AG 19-9 12 U/mL (0-35)
[2019-02-25] MEDS: LEVETIRACETAM (500MG) 750 MG in IV NS 0.9% 100 ML IV SCH ×2 (08:45→20:30)
[2019-02-25] MEDS: CARVEDILOL 3.125 MG TABLET PO SCH ×2 (08:45→17:00)
[2019-02-25] MEDS: MUPIROCIN OINT 2% 22 GM TUBE SCH ×2 (08:55→20:31)
[2019-02-25] MEDS: CLOTRIMAZOLE 1% 15 GM TUBE TP SCH ×2 (09:05→17:23)
[2019-02-25] MEDS: VALPROATE 500 MG in IV D5W 100 ML IV SCH ×2 (09:06→21:26)
[2019-02-25 09:27] LABS: ABG OXYGEN SATURATION 97.8 % (92.0-98.5); ABG PCO2 33.9 mmHg (35.0-45.0); ABG PH 7.486 (7.350-7.450); ABG PO2 106.8 mmHg (75.0-100.0); AaDO2 67.3 mmHg; COHb 0.7 % (0.5-1.5); MetHb 0.4 % (0.0-1.5); O2Hb 96.7 % (94.0-97.0); SITE, ABG Right Radial; VENT MODE, BG CPAP 5 / PS 15
[2019-02-25] MEDS: POTASSIUM CL. PREMIX PERIPHER. 50 ML IV SCH ×2 (11:36→13:21)
[2019-02-25] MEDS: VANCOMYCIN 1.25 GM in IV D5W 500 ML IV SCH ×2 (11:36→23:52)
[2019-02-25] MEDS: PANTOPRAZOLE 40 MG VIAL IV SCH (17:21)
[2019-02-25 17:40] LABS: ALBUMIN 2.7 g/dL (3.4-5.0); BILIRUBIN,DIRECT 1.6 mg/dL (0.0-0.2); BILIRUBIN,TOTAL 2.9 mg/dL (0.2-1.0); TOTAL PROTEIN, SERUM 6.3 g/dL (6.4-8.2)
--- NOTE | 2019-02-25 18:36 | NUR ---
ICU/RN ENDING NOTES,AM BEDSIDE REPORT WILL BE ENDORSED TO NIGHT NURSE. PT ON CPAP MODE TOLERATING WELL. NO DISTRESS. ALL NEEDS ATTENDED TO, BED BATH GIVEN, LINENS CHANGED. BED IN LOW POSITION, SIDE RAILS UP, CALL LIGHT WITHIN REACH. BILATERAL WRIST RESTRAINTS CHECKED PER PROTOCOL.
--- NOTE | 2019-02-25 19:30 | NUR ---
SOLUTIONS SPECIALIST NOTE RECEIVED PT WITH OPEN EYES BUT NO TRACKING AND NOT FOLLOWING ANY COMMANDS. INTUBATED AND ON CPAP TOLERATING SETTINGS. HOB ELEVATED AND ON ASPIRATION PRECAUTIONS. PT NPO. ISOLATION PRECAUTIONS OBSERVED. IV CLEAN DRY WITH FLUIDS INFUSING. BILATERAL SOFT WRIST RESTRAINTS IN PLACE AND NO DISCOLORATION NOTED WITH PALPABLE RADIAL PULSES NOTED. BED ALARM ENABLED. WILL MONITOR.
--- NOTE | 2019-02-25 19:50 | NUR ---
PT RECEIVED ORALLY INTUBATED WITH 7.5 ETT SECURED @ 24 CM LIP [facility] WITH NOTED SETTINGS. PT IS AWAKE AND RESPONDS TO STIMULI WHEN SUCTIONED . SUCTIONED SMALL AMOUNT OF WHITE THICK SECRETIONS. FINANCIAL INTERN DONE. ALARMS ON AND AUDIBLE. VENT PLUGGED INTO RED OUTLET. AMBU BAG AT HEAD OF BED. NO SOB OR SIGNS OF DISTRESS NOTED AT THIS TIME. WILL CONTINUE TO MONITOR THE PATIENT FOR ANY CHANGES.
[2019-02-25] MEDS: TAMSULOSIN 0.4 MG CAP.SR.24H PO SCH (21:26)
[2019-02-26] VITALS (34 sets, daily range): BP systolic 94–163; BP diastolic 31–125
[2019-02-26 04:40] LABS: BASOPHILS % (AUTO) 0.2 % (0.0-2.0); EOSINOPHILS % (AUTO) 0.3 % (0.0-6.0); HEMATOCRIT 38 % (39-51); HEMOGLOBIN 12.8 g/dL (13.5-17.5); LYMPHOCYTES # (AUTO) 0.8 /CMM (0.8-4.8); LYMPHOCYTES % (AUTO) 9.1 % (20.0-44.0); MEAN CORPUSCULAR HGB CONC 33 g/dl (31.0-36.0); MEAN CORPUSCULAR VOLUME 97 fL (80-96); MONOCYTES # (AUTO) 1.2 /CMM (0.1-1.30); MONOCYTES % (AUTO) 13.6 % (2.0-12.0); NEUTROPHILS # (AUTO) 6.9 /CMM (1.8-8.9); NEUTROPHILS % (AUTO) 76.8 % (43.0-81.0); PLATELET COUNT (AUTO) 99 /CMM (150-450); RED BLOOD CELL COUNT(AUTO) 3.96 MIL/uL (4.5-6.0)
[2019-02-26 04:48] LABS: ALBUMIN 2.6 g/dL (3.4-5.0); BILIRUBIN,DIRECT 1.7 mg/dL (0.0-0.2); BILIRUBIN,TOTAL 2.9 mg/dL (0.2-1.0)
[2019-02-26 04:49] LABS: ALBUMIN 2.5 g/dL (3.4-5.0); BILIRUBIN,TOTAL 2.9 mg/dL (0.2-1.0); CALCIUM, SERUM 8.6 mg/dL (8.5-10.1); POTASSIUM 3.5 mmol/L (3.5-5.1)
--- NOTE | 2019-02-26 07:21 | NUR ---
MEDICAL SONOGRAPHER NOTE PT REMAINED STABLE DURING SHIFT. NO DISTRESS NOTED. VENT SETTINGS WELL TOLERATED. ALL NEEDS ATTENDED TO PROMPTLY. SUCTIONED NEEDED. REPOSITIONED Q2H. ISOLATION PRECAUTIONS MAINTAINED. ALL SAFETY MEASURES IN PLACE. BILATERAL SOFT WRISTS IN PLACE. WILL ENDORSE TO NEXT SHIFT FOR CONTINUITY OF CARE.
--- NOTE | 2019-02-26 08:05 | NUR ---
TITLE VEHICLE SERVICE ATTENDANT: pt.is awake, with open eyes, but no eyes contact, unable to follow commands, tracking, rest now, on wrists restraints, tolerated well with CPAP, FiO2 30%, suctioned well, O2sat. over 95%, no SOB, afib 100-110 now, SBP over 100, NPO, R.hand PIVL: leak
--- NOTE | 2019-02-26 08:08 | NUR ---
RT NOTE PT RECEIVED ORALLY INTUBATED WITH 7.5 ETT SECURED @ 24 CM [facility]IP [facility] WITH NOTED SETTINGS. PT IS AWAKE AND RESPONDS TO STIMULI WHEN SUCTIONED . SUCTIONED SMALL AMOUNT OF WHITE THICK SECRETIONS. AIR INTELLIGENCE SPECIALIST DONE. ALARMS ON AND AUDIBLE. VENT PLUGGED INTO RED OUTLET. AMBU BAG AT HEAD OF BED. NO SOB OR SIGNS OF DISTRESS NOTED AT THIS TIME. WILL CONTINUE TO MONITOR THE PATIENT FOR ANY CHANGES.
[2019-02-26 08:24] LABS: ABG BASE EXCESS 0.8 mmol/L; ABG OXYGEN SATURATION 98.8 % (92.0-98.5); ABG PCO2 31.1 mmHg (35.0-45.0); ABG PH 7.491 (7.350-7.450); ABG PO2 142.6 mmHg (75.0-100.0); AaDO2 34.8 mmHg; COHb 1.3 % (0.5-1.5); MetHb 0.7 % (0.0-1.5); O2Hb 96.8 % (94.0-97.0); SITE, ABG Left Radial; VENT MODE, BG cpap +5 ps15 30%
[2019-02-26] MEDS: CARVEDILOL 3.125 MG TABLET PO SCH ×2 (09:00→17:00)
[2019-02-26] MEDS: MUPIROCIN OINT 2% 22 GM TUBE SCH ×2 (09:06→20:29)
[2019-02-26] MEDS: LEVETIRACETAM (500MG) 750 MG in IV NS 0.9% 100 ML IV SCH ×2 (09:06→20:20)
[2019-02-26] MEDS: CLOTRIMAZOLE 1% 15 GM TUBE TP SCH ×2 (09:08→17:35)
[2019-02-26] MEDS: VALPROATE 500 MG in IV D5W 100 ML IV SCH (09:18)
[2019-02-26] MEDS: POTASSIUM CL. PREMIX PERIPHER. 50 ML IV SCH ×4 (09:55→13:42)
[2019-02-26] MEDS: FUROSEMIDE 40 MG/4 ML VIAL IV SCH ×2 (09:56→13:43)
[2019-02-26] MEDS: VANCOMYCIN 1.25 GM in IV D5W 500 ML IV SCH ×2 (10:19→23:20)
--- NOTE | 2019-02-26 11:15 | NUR ---
YOUTH DEVELOPMENT SPECIALIST: pt is rest, awake, but still unable to follow commands, no tracking, no eyes contact, no grimacing, uncooperative, no Sz activity, afib 100-115, BP WNL, O2sat. over 94%, no SOB, Lasix given, I/O monitoring, placed in new L.wrist PIVL #20, Mely Justice,HULL MOLDER were in room, updated
--- NOTE | 2019-02-26 11:51 | NUR ---
OPERATING ROOM COORDINATOR: pt.sister called/updated
--- NOTE | 2019-02-26 12:32 | NUR ---
DIRECTOR BROADCAST: is in room, updated with pt.current status, neurostatus, VS, I/O, ABG, suction amount, meds, see new orders
--- NOTE | 2019-02-26 14:30 | NUR ---
GEAR CHANGER: ordered cool aerosol O2 via ETT, RT notified, PM,skin,wounds care done, pt.is suctioned well
--- NOTE | 2019-02-26 15:00 | NUR ---
ENVIRONMENTAL LEAD: pt.is on cool aerosol O2 via ETT 28%-5L, O2sat. 95-97%, RR 24-26, but pt.was suctioned [id number] with large thick amount of secretion, lavage given, HR 115-125, SBP over 100, continue monitoring
--- NOTE | 2019-02-26 15:03 | NUR ---
RT NOTE PER MD ORDER PLACE PT ON COOL AEROSOL, PT STABLE WILL CONTINUE TO MONITOR CLOSELY
--- NOTE | 2019-02-26 15:42 | NUR ---
NATIONAL SECRETARY: pt.is more rest now, less coughing, O2sat. 95-96%, RR 20-26, HR 120-125, suctioned x2 times more (little pinky secretion), no resp.Tx meds in eMAR, sent message for to update, same neurostatus, pt.is with open eyes, no grimacing, unable to follow commands
--- NOTE | 2019-02-26 16:00 | NUR ---
ELEMENTARY SECRETARY: called back and ordered: HHN with UD Albuterol and Atrovent q4h, RT notified and for distress place back on AC mode Tv 500
[2019-02-26] MEDS: IPRATROPIUM NEB FS 0.5 MG/2.5 ML AMPUL.NEB NEB SCH ×3 (16:30→23:51)
[2019-02-26] MEDS: ALBUTEROL FS 2.5 MG/3 ML VIAL.NEB NEB SCH ×3 (16:30→23:51)
[2019-02-26] MEDS: PANTOPRAZOLE 40 MG VIAL IV SCH (16:40)
--- NOTE | 2019-02-26 17:51 | NUR ---
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
--- NOTE | 2019-02-26 19:30 | NUR ---
PROTOTYPE DEICER ASSEMBLER NOTE RECEIVED PT WITH OPEN EYES AND AT TIMES TRACKS TO NAME. INTUBATED AND ON COOL AEROSOL BUT NOT TOLERATING SETTINGS, DESATURATING AND LARGE SECRETIONS NOTED. CALLED RT TO PLACE PT BACK ON AC MODE. HOB ELEVATED AND ON ASPIRATION PRECAUTIONS. PT NPO. ISOLATION PRECAUTIONS OBSERVED. IV CLEAN DRY WITH FLUIDS INFUSING. BILATERAL SOFT WRIST RESTRAINTS IN PLACE AND NO DISCOLORATION NOTED WITH PALPABLE RADIAL PULSES NOTED. BED ALARM ENABLED. WILL MONITOR.
--- NOTE | 2019-02-26 19:54 | NUR ---
PT RCVD ORALLY INTUBATED ON CA 28% 5L. PT PLACED BACK ON VENT WITH THE SETTINGS OF AC 12, 500 , PEEP 5 PER MD'S ORDER DUE TO DESATTING OF SPO2 76- 80%, RN TANYA NOTIFIED. VENT PLUGGED INTO RED OUTLET, ALARMS ON AND AUDIBLE. AMBU BAG @ BEDSIDE. Q4 BREATHING TX GIVEN ORDERED, NO ADVERSE REACTION NOTED. WILL CONTINUE TO MONITOR FOR ANY CHANGES.
[2019-02-26] MEDS: LACTULOSE UDC 200 G in SODIUM CHLORIDE IRRIG SOLUTION 400 ML IR SCH (21:12)
[2019-02-26] MEDS: VALPROATE 250 MG in IV D5W 100 ML IV SCH (21:13)
[2019-02-26] MEDS: TAMSULOSIN 0.4 MG CAP.SR.24H PO SCH (22:00)
[2019-02-27] VITALS (25 sets, daily range): BP systolic 93–126; BP diastolic 47–88
[2019-02-27] MEDS: LACTULOSE UDC 200 G in SODIUM CHLORIDE IRRIG SOLUTION 400 ML IR SCH ×3 (01:21→09:24)
[2019-02-27] MEDS: ALBUTEROL FS 2.5 MG/3 ML VIAL.NEB NEB SCH ×6 (03:44→23:51)
[2019-02-27] MEDS: IPRATROPIUM NEB FS 0.5 MG/2.5 ML AMPUL.NEB NEB SCH ×6 (03:44→23:51)
[2019-02-27 04:53] LABS: BASOPHILS % (AUTO) 0.5 % (0.0-2.0); EOSINOPHILS % (AUTO) 0.2 % (0.0-6.0); HEMATOCRIT 40 % (39-51); HEMOGLOBIN 13.4 g/dL (13.5-17.5); LYMPHOCYTES # (AUTO) 0.9 /CMM (0.8-4.8); MEAN CORPUSCULAR HGB CONC 33 g/dl (31.0-36.0); MEAN CORPUSCULAR VOLUME 97 fL (80-96); MONOCYTES # (AUTO) 1.5 /CMM (0.1-1.30); MONOCYTES % (AUTO) 17.3 % (2.0-12.0); NEUTROPHILS # (AUTO) 6.3 /CMM (1.8-8.9); PLATELET COUNT (AUTO) 99 /CMM (150-450); RED BLOOD CELL COUNT(AUTO) 4.15 MIL/uL (4.5-6.0); WHITE BLOOD COUNT (AUTO) 8.8 K/uL (4.3-11.0)
[2019-02-27 05:09] LABS: BAND % (MANUAL) 2 % (0.0-5.0); LYMPHOCYTES % (MANUAL) 18 % (16-48); MONOCYTES % (MANUAL) 14 % (0-11.0); NEUTROPHILS % (MANUAL) 66 (42-76)
[2019-02-27 05:20] LABS: ALBUMIN 2.7 g/dL (3.4-5.0); BILIRUBIN,TOTAL 3.7 mg/dL (0.2-1.0); CALCIUM, SERUM 9.1 mg/dL (8.5-10.1); CREATININE 1.2 mg/dL (0.6-1.3); PHOSPHORUS 3.5 mg/dL (2.5-4.9); POTASSIUM 3.6 mmol/L (3.5-5.1); TOTAL PROTEIN, SERUM 6.3 g/dL (6.4-8.2)
--- NOTE | 2019-02-27 07:13 | NUR ---
TRAVEL PROFESSIONAL NOTE PT REMAINED STABLE DURING SHIFT. VENT SETTINGS WELL TOLERATED. ABLE TO WEAN FIO2 TO 60%. PT NOW SLEEPING COMFORTABLY. KEPT CLEAN AND DRY. ALL NEEDS ATTENDED TO PROMPTLY. LACTULOSE ENEMA GIVEN ORDERED WITH MINIMAL OUTPUT. WILL ENDORSE TO NEXT SHIFT FOR CONTINUITY OF CARE.
[2019-02-27] MEDS: CLOTRIMAZOLE 1% 15 GM TUBE TP SCH ×2 (07:37→16:54)
--- NOTE | 2019-02-27 07:47 | NUR ---
DISH CARRIER: pt.is sleepy, reactive by touch, rest, no grimacing, short eyes contact+ but unable to follow commands, O2sat. over 97%, no SOB, on 60% FiO2 AC mode, RT notified, afib 90-115, no pacing, SBP over 100, still NPO, got report: unable to place in O/NGT-multiple unsuccessful attempts done, getting Lactulose rectally but had meds out leak by report, WBC 8.8, I/O 1L negative, is in room, updated with all above, unable to give PO cardio meds, going to call GI
[2019-02-27] MEDS: LEVETIRACETAM (500MG) 750 MG in IV NS 0.9% 100 ML IV SCH ×2 (08:07→20:06)
[2019-02-27] MEDS: VALPROATE 250 MG in IV D5W 100 ML IV SCH ×2 (08:07→20:41)
[2019-02-27] MEDS: MUPIROCIN OINT 2% 22 GM TUBE SCH ×2 (08:15→20:42)
--- NOTE | 2019-02-27 08:30 | NUR ---
SCIENCE TEACHER: is in room, updated with pt.current condition, little neuro status progress, VS, I/O, labs, meds, wrists restraints, back to AC mode d/t desaturation episode and suctions need, lactulose getting, still NPO/unable to give PO meds, see new orders
--- NOTE | 2019-02-27 08:54 | NUR ---
DIRECTOR GIFT: is in room, evaluated pt/updated with all above, POC, meds
[2019-02-27] MEDS: CARVEDILOL 3.125 MG TABLET PO SCH ×3 (09:00→16:53)
--- NOTE | 2019-02-27 10:30 | NUR ---
CREDIT RISK MANAGER: inserted OGT with charge nurse, CXR confirmed: OGT tip is in stomach
[2019-02-27] MEDS: VANCOMYCIN 1.25 GM in IV D5W 500 ML IV SCH ×2 (10:44→22:05)
--- NOTE | 2019-02-27 11:00 | NUR ---
TRANSCRIPTION: is in room, updated with pt.current status, neurostatus, VS, vent.setting, suction amount, I/O, NPO, meds, plan: wean process one more attempt or call pt.sister for possible trach placement consent. Coreg was given via OGT
--- NOTE | 2019-02-27 13:15 | NUR ---
ELECTRICAL MAINTENANCE MECHANIC: unable to give Lactulose rectally, weak rectal sphincter, meds back leak, OGT is inserted, sent message for Anna DENNISON to update
--- NOTE | 2019-02-27 14:00 | NUR ---
WOODS RIDER: Anna VALENZUELA FLAG DECORATOR changed Lactulose to 20gm q6h via OGT
[2019-02-27] MEDS: LACTULOSE 10 G/15 ML UDC (PYXIS) NG SCH ×2 (14:07→20:06)
--- NOTE | 2019-02-27 15:28 | NUR ---
SALES MANAGEMENT TRAINEE: RT Mk gave pt instructions re Tx, meds, possible wean process tomorrow. Pt.is in progress, eyes contact+, more coordinated arms activity, still weak, was suctioned well
[2019-02-27] MEDS: PANTOPRAZOLE 40 MG VIAL IV SCH (16:51)
--- NOTE | 2019-02-27 17:17 | NUR ---
RT END OF THE SHIFT REPORT, PT. 68 Y OLD MALE PT. RECEIVED @ 0700 AM ORALLY INTUBATED ETT#7.5 @ 24 CM LIPLINE ON [facility]. VENT WITH NOTED AC MODE. NO VENT CHANGES DONE T/O DAY, TX'S NOT GIVEN @ 1130 DUE TO TACHYCARDIA, RN INFORMED AT THE BEDSIDE. PT. REMAIN STABLE. PT SUX'D MODERATE DAVID SECRETIONS. B/S RHONCHI/ RALES BILATERALLY, EQUAL CHEST RISE NOTED. VENT IS PLUGGED INTO RED OUTLET. ALARMS ARE SET AND FUNCTIONAL. HME CHANGED, AMBU BAG AT BEDSIDE. WILL CONTINUE TO MONITOR. REPORT WILL PASS TO PM SHIFT. Addendum: 02/27/19 at 1719 by CROW FERNÁNDEZ RT Amended: Links added.
--- NOTE | 2019-02-27 18:00 | NUR ---
REPLANTING MACHINE CREW: [employer], KateWOOD MECHANIST were in room, updated, PM/skin/wound care done, pt.is awake, eyes contact+, more active and tracking short+ but unable to follow commands well, afib 95-110, SBP over 90, suctioned well, O2sat. WNL
--- NOTE | 2019-02-27 19:36 | NUR ---
RN NOTE: RECEIVED PT ON BED, ABLE TO OPEN EYES, RESPONDS TO VERBAL AND TACTILE STIMULI. NO APPARENT DISTRESS NOTED. NO FACIAL GRIMACING OR ANY SIGNS OF PAIN NOTED. ON ETT TUBE, AC MODE ON VENT ORDERED, NO SOB NOTED. SUCTIONED NEEDED. ON BEDSIDE MONITOR AFIB CONTROLLED HR 100BPM. RIGHT FOREARM #20 INTACT AND PATENT, NO SIGNS/SYMPTOMS OF INFILTRATION NOTED. ZIMMER CATH INTACT AND DRAINING WELL. KEPT CLEAN, DRY AND COMFORTABLE. SAFETY AND FALL PRECAUTIONS OBSERVED AND MAINTAINED. WILL CONTINUE TO MONITOR PT
--- NOTE | 2019-02-27 19:57 | NUR ---
RT PT RECEIVED ON VENT. NO RESP DISTRESS NOTED. PT RECEIVING SCHEDULED ALBUTEROL AND ATROVENT TX. Addendum: 02/27/19 at 1957 by MARYJANE TRUJILLO RT Amended: Links added.
[2019-02-27] MEDS: TAMSULOSIN 0.4 MG CAP.SR.24H PO SCH (21:59)
[2019-02-28] VITALS (24 sets, daily range): BP systolic 87–118; BP diastolic 54–79
[2019-02-28] MEDS ORDERED: LACTULOSE 10 G/15 ML UDC (PYXIS) ONE (02:37)
[2019-02-28] MEDS: LACTULOSE 10 G/15 ML UDC (PYXIS) NG SCH ×4 (02:40→19:24)
[2019-02-28] MEDS: ALBUTEROL FS 2.5 MG/3 ML VIAL.NEB NEB SCH ×5 (03:46→19:27)
[2019-02-28] MEDS: IPRATROPIUM NEB FS 0.5 MG/2.5 ML AMPUL.NEB NEB SCH ×6 (03:46→23:30)
[2019-02-28 05:02] LABS: ALBUMIN 2.5 g/dL (3.4-5.0); BILIRUBIN,TOTAL 3.1 mg/dL (0.2-1.0); CALCIUM, SERUM 8.7 mg/dL (8.5-10.1); CREATININE 1.1 mg/dL (0.6-1.3); POTASSIUM 3.3 mmol/L (3.5-5.1); TOTAL PROTEIN, SERUM 6.1 g/dL (6.4-8.2)
[2019-02-28 05:08] LABS: ANTI-MITOCHONDRIAL AB <20.0 Units (0.0-20.0)
--- NOTE | 2019-02-28 06:35 | NUR ---
RN NOTE: NO CHANGES NOTED THROUGHOUT THE SHIFT. NO APPARENT DISTRESS NOTED. NO FACIAL GRIMACING OR ANY SIGNS OF PAIN NOTED. ON MECH VENT, SETTINGS ORDERED, SATURATING WELL. AFIB CONTROLLED ON BEDSIDE MONITOR HR 86BPM. ZIMMER CATH INTACT, DRAINED 750ML OF URINE OUTPUT. KEPT CLEAN, DRY AND COMFORTABLE. SAFETY AND FALL PRECAUTIONS OBSERVED AND MAINTAINED. WILL ENDORSE TO DAY SHIFT RN FOR CONTINUITY OF CARE.
[2019-02-28] MEDS: POTASSIUM CHLORIDE 20 MEQ POWDER PACKET NG SCH ×3 (08:25→09:58)
[2019-02-28] MEDS: FUROSEMIDE 40 MG/4 ML VIAL IV SCH ×3 (08:25→16:35)
[2019-02-28] MEDS: ESOMEPRAZOLE MAGNESIUM 40 MG SUSPDR.PKT GT SCH (08:26)
[2019-02-28] MEDS: VALPROATE 250 MG in IV D5W 100 ML IV SCH ×2 (08:27→20:35)
[2019-02-28] MEDS: LEVETIRACETAM (500MG) 750 MG in IV NS 0.9% 100 ML IV SCH ×2 (08:27→20:35)
[2019-02-28] MEDS: MUPIROCIN OINT 2% 22 GM TUBE SCH ×2 (08:30→21:38)
[2019-02-28] MEDS: CLOTRIMAZOLE 1% 15 GM TUBE TP SCH ×2 (08:31→16:35)
[2019-02-28] MEDS: VANCOMYCIN 1.25 GM in IV D5W 500 ML IV SCH ×2 (11:00→22:00)
--- NOTE | 2019-02-28 11:17 | NUR ---
obeyo trough=28 pharmacy contacted by RN and notified of lab value, per pharmacy-hold dose today
[2019-02-28 11:46] LABS: ABG BASE EXCESS -0.9 mmol/L; ABG PCO2 30.3 mmHg (35.0-45.0); ABG PH 7.473 (7.350-7.450); ABG PO2 149.3 mmHg (75.0-100.0); AaDO2 101.1 mmHg; COHb 1.1 % (0.5-1.5); MetHb 0.6 % (0.0-1.5); O2Hb 97.3 % (94.0-97.0); SITE, ABG Right Radial
[2019-02-28] MEDS: TAMSULOSIN 0.4 MG CAP.SR.24H PO SCH (22:23)
[2019-03-01] VITALS (24 sets, daily range): BP systolic 89–117; BP diastolic 57–78
[2019-03-01] MEDS: ALBUTEROL FS 2.5 MG/3 ML VIAL.NEB NEB SCH ×7 (00:46→23:36)
[2019-03-01] MEDS ORDERED: LACTULOSE 10 G/15 ML UDC (PYXIS) ONE (01:21)
[2019-03-01] MEDS: LACTULOSE 10 G/15 ML UDC (PYXIS) NG SCH ×4 (01:24→19:31)
[2019-03-01] MEDS: IPRATROPIUM NEB FS 0.5 MG/2.5 ML AMPUL.NEB NEB SCH ×6 (03:01→23:36)
[2019-03-01 05:00] LABS: CALCIUM, SERUM 8.6 mg/dL (8.5-10.1); CREATININE 1.2 mg/dL (0.6-1.3); POTASSIUM 3.2 mmol/L (3.5-5.1)
--- NOTE | 2019-03-01 07:15 | NUR ---
DEEP SUBMERGENCE VEHICLE OPERATOR NOTES RECEIVED BED SIDE REPORT FROM NOC RN.PT A/O X1 RESPONDS TO VOICE NO S/S OF RESPIRATORY DISTRESS ETT TUBE 7.5 @ 24 AT THE LIP TOLERATING SETTINGS ORDERED. NO SIGNS OF ACUTE PAIN NOTED. AFIB ON MONITOR WITH PVC AND BBB CARDIOLOGY AWARE. ZIMMER CATH DRAINING DARK YELLOW URINE. RFA # 20 TKO DULCE WRIST RESTRAINTS FOR PULLING AT LINES AND TUBES. SAFETY AND ASPIRATION PRECAUTIONS IN PLACE BED IN LOW LOCKED POSITION WILL CONT TO MONITOR ACCORDINGLY
[2019-03-01] MEDS: LEVETIRACETAM (500MG) 750 MG in IV NS 0.9% 100 ML IV SCH ×2 (08:49→20:06)
[2019-03-01] MEDS: ESOMEPRAZOLE MAGNESIUM 40 MG SUSPDR.PKT GT SCH (08:49)
[2019-03-01] MEDS: CLOTRIMAZOLE 1% 15 GM TUBE TP SCH ×2 (08:49→16:39)
[2019-03-01] MEDS: MUPIROCIN OINT 2% 22 GM TUBE SCH ×2 (08:49→20:09)
[2019-03-01] MEDS: VALPROATE 250 MG in IV D5W 100 ML IV SCH ×2 (09:26→20:06)
[2019-03-01] MEDS ORDERED: POTASSIUM CHLORIDE 20 MEQ POWDER PACKET NG SCH (09:30)
[2019-03-01 09:37] LABS: ABG BASE EXCESS -0.7 mmol/L; ABG OXYGEN SATURATION 99.2 % (92.0-98.5); ABG PCO2 31.8 mmHg (35.0-45.0); ABG PH 7.463 (7.350-7.450); ABG PO2 197.7 mmHg (75.0-100.0); AaDO2 50.9 mmHg; COHb 1.1 % (0.5-1.5); MetHb 0.6 % (0.0-1.5); O2Hb 97.5 % (94.0-97.0); SITE, ABG Left Radial; VENT MODE, BG COOL AEROSOL
--- NOTE | 2019-03-01 10:22 | NUR ---
PT TRANSPORTED TO CT VIA BED WITH RN AND TECH ACLS PROTOCOL
--- NOTE | 2019-03-01 10:47 | NUR ---
PT RETURNED FROM CT
--- NOTE | 2019-03-01 10:56 | NUR ---
RADIOLOGIST CALLED WITH RESULTS OF HEAD CT TO R/O STROKE . NO FINDINGS OF STROKE WILL ENDORSE TO
--- NOTE | 2019-03-01 13:00 | NUR ---
MIDLINE PLACED IN JENNA # 18 PATENT WITH GOOD BLOOD RETURN
--- NOTE | 2019-03-01 15:03 | NUR ---
RT END OF THE SHIFT REPORT, PT. 68 Y OLD MALE PT. RECEIVED @ 0700 AM ORALLY INTUBATED ETT # 7.5 @ 24CM ON [facility]. VENT WITH NOTED CPAP MODE. @0825 PT. PLACED ON COOL AEROSOL PER DR. ARMENDARIZ ORDER. POST BAG DONE NO CHANGES PER MD. T/O DAY, TX'S Q4 GIVEN INLINE PT. REMAIN STABLE. PT SUX'D MODERATE DAVID SECRETIONS. B/S RHONCHI/RALES BILATERALLY, EQUAL CHEST RISE NOTED. PT. REMAIN STABLE ON 40% 10L/MIN COOL AEROSOL WILL CONTINUE TO MONITOR. REPORT WILL PASS TO PM SHIFT. Addendum: 03/01/19 at 1507 by CROW FERNÁNDEZ RT Amended: Links added.
[2019-03-01] MEDS: JEVITY 1.2 CAL 1,000 ML BOTTLE GT PRN (16:39)
--- NOTE | 2019-03-01 20:00 | NUR ---
ELECTRIC BATH ATTENDANT - NOTES - RECEIVED BED SIDE REPORT FROM JASWANT RN.PT A/O X1 RESPONDS TO VOICE NO S/S OF RESPIRATORY DISTRESS ETT TUBE 7.5 @ 24 AT THE LIP TOLERATING SETTINGS ORDERED. NO SIGNS OF ACUTE PAIN NOTED. AFIB ON MONITOR WITH PVC AND BBB CARDIOLOGY AWARE. ZIMMER CATH DRAINING DARK YELLOW URINE. JENNA MIDLINE AND RFA # 20 TKO DULCE WRIST RESTRAINTS FOR PULLING AT LINES AND TUBES. SAFETY AND ASPIRATION PRECAUTIONS IN PLACE BED IN LOW LOCKED POSITION WILL CONT TO MONITOR ACCORDINGLY
[2019-03-01] MEDS: VANCOMYCIN 1.25 GM in IV D5W 500 ML IV SCH (22:12)
[2019-03-01] MEDS: TAMSULOSIN 0.4 MG CAP.SR.24H PO SCH (22:12)
[2019-03-02] VITALS (24 sets, daily range): BP systolic 87–125; BP diastolic 57–81
[2019-03-02] MEDS: ACETAMINOPHEN 325 MG TABLET PO PRN (01:51)
[2019-03-02] MEDS ORDERED: LACTULOSE 10 G/15 ML UDC (PYXIS) ONE (02:13)
[2019-03-02] MEDS: LACTULOSE 10 G/15 ML UDC (PYXIS) NG SCH ×4 (02:16→19:28)
[2019-03-02] MEDS: IPRATROPIUM NEB FS 0.5 MG/2.5 ML AMPUL.NEB NEB SCH ×6 (03:38→23:25)
[2019-03-02] MEDS: ALBUTEROL FS 2.5 MG/3 ML VIAL.NEB NEB SCH ×6 (03:38→23:25)
[2019-03-02 04:26] LABS: CREATININE 1.2 mg/dL (0.6-1.3); POTASSIUM 3.2 mmol/L (3.5-5.1)
[2019-03-02 05:04] LABS: CALCIUM, SERUM 8.2 mg/dL (8.5-10.1)
[2019-03-02] MEDS: LEVETIRACETAM (500MG) 750 MG in IV NS 0.9% 100 ML IV SCH (08:37)
[2019-03-02] MEDS: ESOMEPRAZOLE MAGNESIUM 40 MG SUSPDR.PKT GT SCH (08:38)
[2019-03-02] MEDS: MUPIROCIN OINT 2% 22 GM TUBE SCH ×2 (08:55→21:04)
[2019-03-02] MEDS: CLOTRIMAZOLE 1% 15 GM TUBE TP SCH ×2 (08:55→17:46)
[2019-03-02] MEDS: VALPROATE 250 MG in IV D5W 100 ML IV SCH ×2 (09:37→21:02)
[2019-03-02] MEDS ORDERED: POTASSIUM CHLORIDE 20 MEQ POWDER PACKET GT ONE (10:30)
--- NOTE | 2019-03-02 10:31 | NUR ---
rn note spoke with dr Badillo about potassium level. got order for 40 meq kcl. Also relayed message about necessity of tracheostomy tube placement recommended by dr Rodriguez, family made aware.
[2019-03-02] MEDS: JEVITY 1.2 CAL 1,000 ML BOTTLE GT PRN (11:17)
[2019-03-02 16:08] LABS: CMV, IgG <0.60 U/mL (0.00-0.59)
[2019-03-02] MEDS: TAMSULOSIN 0.4 MG CAP.SR.24H PO SCH (21:02)
[2019-03-02] MEDS: LEVETIRACETAM SOL (5 ML) 100 MG/ML UDC GT SCH (21:02)
[2019-03-02] MEDS: VANCOMYCIN 1.25 GM in IV D5W 500 ML IV SCH (22:17)
[2019-03-03] VITALS (25 sets, daily range): BP systolic 88–114; BP diastolic 59–77
[2019-03-03] MEDS: LACTULOSE 10 G/15 ML UDC (PYXIS) NG SCH ×4 (01:48→20:11)
[2019-03-03] MEDS: IPRATROPIUM NEB FS 0.5 MG/2.5 ML AMPUL.NEB NEB SCH ×6 (03:10→22:54)
[2019-03-03] MEDS: ALBUTEROL FS 2.5 MG/3 ML VIAL.NEB NEB SCH ×6 (03:10→22:54)
[2019-03-03 04:24] LABS: BASOPHILS % (AUTO) 0.6 % (0.0-2.0); EOSINOPHILS % (AUTO) 2.4 % (0.0-6.0); HEMATOCRIT 39 % (39-51); LYMPHOCYTES # (AUTO) 0.8 /CMM (0.8-4.8); MEAN CORPUSCULAR HGB CONC 33 g/dl (31.0-36.0); MEAN CORPUSCULAR VOLUME 100 fL (80-96); MONOCYTES # (AUTO) 1.6 /CMM (0.1-1.30); PLATELET COUNT (AUTO) 76 /CMM (150-450); RED BLOOD CELL COUNT(AUTO) 3.93 MIL/uL (4.5-6.0); WHITE BLOOD COUNT (AUTO) 7.6 K/uL (4.3-11.0)
[2019-03-03 04:54] LABS: ALBUMIN 2.5 g/dL (3.4-5.0); BILIRUBIN,TOTAL 2.8 mg/dL (0.2-1.0); CALCIUM, SERUM 8.4 mg/dL (8.5-10.1); CREATININE 1.3 mg/dL (0.6-1.3); MAGNESIUM 2.3 mg/dL (1.8-2.4); POTASSIUM 4.3 mmol/L (3.5-5.1); TOTAL PROTEIN, SERUM 6.5 g/dL (6.4-8.2)
[2019-03-03 05:49] LABS: LYMPHOCYTES % (MANUAL) 11 % (16-48); MONOCYTES % (MANUAL) 17 % (0-11.0); NEUTROPHILS % (MANUAL) 69 (42-76)
--- NOTE | 2019-03-03 07:30 | NUR ---
SUBSTANCE ABUSE COUNSELOR INITIAL NOTE RECEIVED PATIENT AWAKE, FOLLOWS SIMPLE COMMANDS. NO RESPIRATORY DISTRESS NOTED. NO S/S OF PAIN OR DISCOMFORT. WITH ETT PATENT, INTACT. TOLERATING CURRENT CPAP SETTING. ON TELE MONITOR AFIB UNCONTROLLED. OGT PATENT, INTACT, IN PLACE, NO RESIDUAL NOTED. F/C PATENT, INTACT, DRAINING BY GRAVITY. NOTED WITH BUE AND BLE EDEMA. ABDOMINAL DISTENTION, NON-TENDER TO TOUCH. RELEASED AIR. BILATERAL SOFT RESTRAINTS IN PLACE, WITH GOOD CIRCULATION. ISOLATION PRECAUTIONS OBSERVED. HOB ELEVATED. SIDE RAILS UP AND LOCKED. BED KEPT AT LOWEST POSITION. TURNED AND REPOSITIONED. WILL CONTINUE TO MONITOR.
[2019-03-03] MEDS: ACETAMINOPHEN 325 MG TABLET PO PRN (08:07)
[2019-03-03] MEDS: LEVETIRACETAM SOL (5 ML) 100 MG/ML UDC GT SCH ×2 (08:08→20:29)
[2019-03-03] MEDS: JEVITY 1.2 CAL 1,000 ML BOTTLE GT PRN (08:08)
[2019-03-03] MEDS: FUROSEMIDE 40 MG/4 ML VIAL IV SCH ×3 (08:08→15:30)
[2019-03-03] MEDS: ESOMEPRAZOLE MAGNESIUM 40 MG SUSPDR.PKT GT SCH (08:08)
[2019-03-03] MEDS: VALPROATE 250 MG in IV D5W 100 ML IV SCH ×2 (08:08→20:28)
[2019-03-03] MEDS: CLOTRIMAZOLE 1% 15 GM TUBE TP SCH ×2 (08:09→16:18)
[2019-03-03] MEDS: MUPIROCIN OINT 2% 22 GM TUBE SCH ×2 (08:09→20:31)
--- NOTE | 2019-03-03 08:45 | NUR ---
DOCTOR OF NATUROPATHIC MEDICINE NOTE SEEN AND EXAMINED BY DR. ARMENDARIZ WITH ORDER FOR STAT KUB FOR ABDOMINAL DISTENTION. NOTED.
--- NOTE | 2019-03-03 09:17 | NUR ---
SUPERINTENDENT AUTOMOTIVE NOTE TECH AT BEDSIDE, PER TECH MRCP CAN'T BE DONE WITH PATIENT STILL ATTACHED TO VENTILATOR. WILL INFORM PRIMARY.
--- NOTE | 2019-03-03 10:49 | NUR ---
RED HAT OPEN STACK ADMINISTRATOR NOTE CONTINUITY OF CARE ENDORSED TO AFSA
--- NOTE | 2019-03-03 15:23 | NUR ---
EXAMINER RATING CLERK NOTES: CT ABDOMEN/PELVIS MD ARMENDARIZ MADE AWARE OF [employer]'S SUGGESTION FOR A SMALL BOWEL FOLLOW THROUGH RATHER THAN CT TO R/O OBSTRUCTION. AGREED TO SUGGESTION. WILL D/C CT
--- NOTE | 2019-03-03 17:55 | NUR ---
BIOMEDICAL INSTRUMENT TECHNICIAN NOTES: SMALL BOWEL FOLLOW THROUGH RAKAN MADE AWARE THAT PT IS UNABLE TO BE TAKEN DOWN FOR SMALL BOWEL FOLLOW THROUGH. ARRANGEMENTS MADE WITH RAMONITA FROM [employer] TO COMPLETE SCAN IN AM. PAYROLL AND BENEFITS MANAGER MADE AWARE
--- NOTE | 2019-03-03 19:06 | NUR ---
RAGMAN CLOSING NOTES PT REMAINS STABLE ON CPAP. ALL NEEDS ANTICIPATED FOR AND MET. ALL DUE MEDS GIVEN. PRN CARE RENDERED. PT REPOSITIONED AND TURNED PER PROTOCOL. INVASIVE LINES REMAIN PATENT AND INTACT. ENDORSED TO NIGHTSHIFT RN FOR JULIANN
--- NOTE | 2019-03-03 19:59 | NUR ---
RECEIVED PT ORALLY INTUBATED WITH 7.5 ETT AT 24CM ON VENT WITH NOTED SETTINGS. PT IS ALERT AND AWAKE. Q4 BREATHING TX GIVEN, NO ADVERSE REACTION NOTED. SX DONE . VENT PLUGGED TO RED OUTLET. VENT ALARMS SET AND AUDIBLE. AMBU BAG AT BEDSIDE. WILL CONTINUE TO MONITOR.
--- NOTE | 2019-03-03 20:00 | NUR ---
ICU/RN NOTES RECEIVED PT ON VENT.40%FIO2,5CMPEEP,CPAP,PS OF 15,W/ O2 SAT OF 100 %.NO SIGN OF RESP DISTRESS.AWAKE,ALERT,FOLLOWS SIMPLE COMMANDS.
[2019-03-03] MEDS: VANCOMYCIN 1.25 GM in IV D5W 500 ML IV SCH (22:56)
[2019-03-03] MEDS: TAMSULOSIN 0.4 MG CAP.SR.24H PO SCH (22:56)
--- NOTE | 2019-03-03 23:00 | NUR ---
ICU/RN NOTES SUCTIONED FOR SCANT THICK WHITE SECRETIONS,EARLIER PINK-TINGED SECRETIONS.SALEM SUMP TUBE TO LIS,DRAINING SCANT YELLOWISH DRAINAGE
[2019-03-04] VITALS (24 sets, daily range): BP systolic 90–145; BP diastolic 56–92
[2019-03-04] MEDS: LACTULOSE 10 G/15 ML UDC (PYXIS) NG SCH ×4 (02:00→20:00)
[2019-03-04] MEDS: IPRATROPIUM NEB FS 0.5 MG/2.5 ML AMPUL.NEB NEB SCH ×6 (03:29→23:38)
[2019-03-04] MEDS: ALBUTEROL FS 2.5 MG/3 ML VIAL.NEB NEB SCH ×7 (03:30→23:38)
--- NOTE | 2019-03-04 03:50 | NUR ---
ICU/RN NOTES AFTER BATHING PATIENT W/ BILATERARL RSOFT WRIST RESTRAINT S IN PLACE,PT DECIDED TO PULL ETT BY BENDINNG HEAD.WHEN ASKE WHY,STATED 'I WANT THE TUBE OUT.WHAT TRIGGERED HIM TO EXTUBATE HIMSELF IS WHEN HE WAS TOLD THAT HE WILL BE TRACH IF HE FAILS WEANING.PLACED ON 100% NRM AT 15LPM.PT. TALKING AND SAY"SORRY! WILL MONITOR PT.
[2019-03-04 04:33] LABS: CALCIUM, SERUM 8.8 mg/dL (8.5-10.1); CREATININE 1.4 mg/dL (0.6-1.3); POTASSIUM 4.1 mmol/L (3.5-5.1)
[2019-03-04] MEDS ORDERED: IV NS 0.9% 250 ML IV PRN (06:00)
--- NOTE | 2019-03-04 06:00 | NUR ---
ICU/RN NOTE NOTIFIED RE-PT EXTUBATING SELF.ODER RECEIVED.REMAINS IN AFIB RATE 90'S TO 120'S.O2 SAT 97-100%.DENIES SHORTNES OF BREATH.VITAL SIGNS STABLE.
--- NOTE | 2019-03-04 07:30 | NUR ---
GROUND SUPPORT AGENT INITIAL NOTE RECEIVED PATIENT AWAKE, ALERT, FOLLOWS SIMPLE COMMANDS. DENIES PAIN OR DISCOMFORT AT THIS TIME. DENIES SOB. PER REPORT PATIENT SELF EXTUBATED THIS MORNING, PATIENT ON 15LPM NON-REBREATHER, SPO2 100%, WILL TITRATE TOLERATED. PATIENT RESTLESS. IN BED. ON TELE MONITOR AFIB UNCONTROLLED 120-130'S. HOB ELEVATED. SIDE RAILS UP AND LOCKED. BILATERAL WRIST RESTRAINTS IN PLACE, CIRCULATION CHECKED. BED KEPT AT LOWEST POSITION. WILL CLOSELY MONITOR.
--- NOTE | 2019-03-04 07:54 | NUR ---
CONTACT LENS LATHE OPERATOR NOTE INFORMED PHARMACY AND MD REGARDING CRITICAL VANCO TROUGH LEVEL OF 52
[2019-03-04] MEDS: ESOMEPRAZOLE MAGNESIUM 40 MG SUSPDR.PKT GT SCH (08:19)
--- NOTE | 2019-03-04 08:33 | NUR ---
SAFE AND VAULT INSTALLER NOTE DR. AGRAWAL INFORMED REGARDING PATIENT SELF EXTUBATION
--- NOTE | 2019-03-04 08:50 | NUR ---
RT PATIENT REC'D ON NRB MASK. ABG DONE WITH RESULTS GIVEN TO DR ARMENDARIZ. DOWN TIME PROCEDURE PROCESS DONE. ABG RESULTS GIVEN TO DONIS BROWN AND ALSO PLACED IN CHART AND DOWN TIME PROCEDURE BINDER. PER DR ARMENDARIZ PATIENT PLACED ON 6L N/C TOLERATING WELL. NO SOB NOTED
--- NOTE | 2019-03-04 08:53 | NUR ---
LOADING UNIT TOOL SETTER NOTE SEEN AND EXAMINED BY DR YU, STATED PATIENT IS IMPROVING, ABDOMEN IS SOFT, THERES NOT MUCH ELSE FOR HIM TO DO AT THIS TIME.
--- NOTE | 2019-03-04 09:00 | NUR ---
TICK ERADICATOR NOTE RT AT BEDSIDE PATIENT PLACED ON 6LPMO2 VIA NC, NO SOB AT THIS TIME. WILL CONTINUE TO MONITOR.
[2019-03-04] MEDS: LEVETIRACETAM (500MG) 750 MG in IV NS 0.9% 100 ML IV SCH ×2 (09:24→21:11)
[2019-03-04] MEDS: VALPROATE 250 MG in IV D5W 100 ML IV SCH (09:24)
[2019-03-04] MEDS: MUPIROCIN OINT 2% 22 GM TUBE SCH ×2 (09:24→21:21)
[2019-03-04] MEDS: CLOTRIMAZOLE 1% 15 GM TUBE TP SCH ×2 (09:25→17:59)
[2019-03-04] MEDS ORDERED: BUMETANIDE INJ 3 MG in IV NS 0.9% 48 ML IV ONE (10:30)
[2019-03-04] MEDS: DIGOXIN INJ 0.5 MG/2 ML AMPUL IV SCH ×2 (11:36→17:59)
[2019-03-04] MEDS ORDERED: IV D5/ 0.9% NACL 1,000 ML IV PRN (14:00)
--- NOTE | 2019-03-04 15:00 | NUR ---
BUNDLE COLLECTOR NOTE FOLLOWED UP WITH RADIOLOGY REGARDING SMALL BOWEL FOLLOW THROUGH PROCEDURE. STATED IT CAN'T BE DONE AT THIS TIME. THEY HAVE TOO MANY PATIENTS TODAY. INFORMED CHARGE NURSE.
--- NOTE | 2019-03-04 15:44 | NUR ---
broker agricultural produce note family came to visit, updates given, all belongings taken by family including wallet and cellphones
--- NOTE | 2019-03-04 19:33 | NUR ---
SHAPING MACHINE TENDER CLOSING NOTE NO SIGNIFICANT CHANGES. NO RESPIRATORY DISTRESS NOTED. RESPONSIVE. FOLLOWS SIMPLE COMMANDS. DENIES PAIN OR DISCOMFORT. DENIES SOB. TOLERATED 6LMP VIA NC OXYGEN. F/C PATENT, INTACT IN PLACE. HOB ELEVATED. RESTRAINTS RELEASED. HOB ELEVATED. SIDE RAILS UP AND LOCKED. BED KEPT AT LOWEST POSITION. CALL LIGHT KEPT WITHIN EASY REACH. CONTINUITY OF CARE ENDORSED TO PM NURSE.
--- NOTE | 2019-03-04 19:45 | NUR ---
ICU/RN NOTES RECEIVED PT AWAKE ,ALERT AND ORIENTED.FOLLOWS COMMANDS.ON 6LN/C W/O2 SAT OF 97%.DENIES SHORTNESS OF BREATH.MONITOR SHOWS A-FIB W/ RATE OF 120'S.
[2019-03-04] MEDS: TAMSULOSIN 0.4 MG CAP.SR.24H PO SCH (22:00)
[2019-03-04] MEDS: VANCOMYCIN 1.25 GM in IV D5W 500 ML IV SCH (23:05)
[2019-03-05] VITALS (27 sets, daily range): BP systolic 91–132; BP diastolic 53–90
--- NOTE | 2019-03-05 | NUR ---
ICU/RN NOTES GIVEN THORD DOSE OF DIGOXIN 0.25MG IVP FOR A-FIB.RATE 87-110/MIN.DENIES PAIN.DENIES SHORTNESS OF BREATH.PT REMAINS NPO.ABDOMEN REMAINS DISTENDED W/ HYPOACTIVE BOWEL SOUNDS.
[2019-03-05] MEDS: DIGOXIN INJ 0.5 MG/2 ML AMPUL IV SCH (00:05)
[2019-03-05] MEDS: LACTULOSE 10 G/15 ML UDC (PYXIS) NG SCH ×4 (02:00→19:56)
--- NOTE | 2019-03-05 02:16 | NUR ---
ICU/RN NOTES BED BATH GIVEN.PT COOPERATIVE.MAINTAINING O2 SAT 0F 95%.DENIES SHORTNESS OF BREATH.
[2019-03-05] MEDS: IPRATROPIUM NEB FS 0.5 MG/2.5 ML AMPUL.NEB NEB SCH ×6 (02:55→23:40)
[2019-03-05] MEDS: ALBUTEROL FS 2.5 MG/3 ML VIAL.NEB NEB SCH ×6 (02:55→23:40)
--- NOTE | 2019-03-05 03:47 | NUR ---
ICU/RN NOTES REPORT AND CARE OF PT. GIVEN TO KEATON DYKES.
[2019-03-05 04:46] LABS: CALCIUM, SERUM 8.4 mg/dL (8.5-10.1); CREATININE 1.4 mg/dL (0.6-1.3); POTASSIUM 4.1 mmol/L (3.5-5.1)
--- NOTE | 2019-03-05 04:57 | NUR ---
PT NPO, LACTULOSE NOT GIVEN.
--- NOTE | 2019-03-05 06:52 | NUR ---
SCRAPER LOADER OPERATOR CLOSING NOTE ENDORSED PT TO AM RN FOR JULIANN, NO CHANGE IN PLAN OF CARE.
--- NOTE | 2019-03-05 07:45 | NUR ---
COUPLES THERAPIST: pt.is self extubated over 24hr before, on 6L n/c now, SpO2 oer 94%, no SOB, pt.is awake, reactive by name, eyes contact+, rest ow, unable to follow commands well, no Sz by report, afib 100-120, SBP over 100, abdomen is distended, 2-3/10 pain with palpation, POC: ileus r/o SBO, nobody placed in back NGT after extubation, w/s with MD, NPO now, pt is instructed re POC, safety measures
--- NOTE | 2019-03-05 08:03 | NUR ---
HOT BREAD BAKER: pharmacy called, needs digoxin lab level
[2019-03-05] MEDS: FUROSEMIDE 40 MG/4 ML VIAL IV SCH ×3 (08:30→15:44)
[2019-03-05] MEDS: ESOMEPRAZOLE MAGNESIUM 40 MG SUSPDR.PKT GT SCH (09:00)
--- NOTE | 2019-03-05 09:10 | NUR ---
FILM PROCESSOR: is in room, updated with pt.current condition, neuro status, VS, I/O, NPO, abdomen distention/soft, ordered: swallow evaluation
[2019-03-05] MEDS: LEVETIRACETAM (500MG) 750 MG in IV NS 0.9% 100 ML IV SCH ×2 (09:40→20:02)
[2019-03-05] MEDS: MUPIROCIN OINT 2% 22 GM TUBE SCH ×2 (09:41→20:02)
[2019-03-05] MEDS: CLOTRIMAZOLE 1% 15 GM TUBE TP SCH ×2 (09:45→15:45)
--- NOTE | 2019-03-05 10:15 | NUR ---
FORM COVERER: Radiology dep called/updated: pt.is NPO, no NGT, waiting swallow evaluation per order, phone call message was sent for ST before, MRI dep was in room/updated with pt.VS, current condition, order for MRCP is active, message was sent for [employer] to updated with all above
--- NOTE | 2019-03-05 11:15 | NUR ---
TOPPER PACKER: evaluated pt.: [place] AICD, MRI canceled
--- NOTE | 2019-03-05 12:00 | NUR ---
CLEAN UP PERSON: is in room, updated with pt.neurostatus, VS, O2sat. on 5L n/c, I/O, NPO, KUB was done yesterday (ileus r/t SBO), order: swallow evaluation, see new orders
[2019-03-05] MEDS ORDERED: DIGOXIN 0.25 MG TABLET GT SCH (13:00)
[2019-03-05] MEDS ORDERED: DIGOXIN ELIX UDC 0.25 MG/5 ML UDC GT SCH (13:00)
--- NOTE | 2019-03-05 13:48 | NUR ---
PROFESSIONAL ADVISOR: Kate,BORING MILL SET UP OPERATOR is in room/updated, included KUB yesterday result, ST is aware re order
--- NOTE | 2019-03-05 14:22 | NUR ---
VORTEX OPERATOR: ST evaluated pt.: can swallow, but needs aspiration precaution, see recommendation
--- NOTE | 2019-03-05 15:02 | NUR ---
VALIDATION INTERN: XR SBFT order is still active, spoke with Radiology dep/updated with pt.swallow patent per ST evaluation, VS, O2sat. on 5L n/c, neurostatus, SBFT scheduled for 18.00, charge nurse is aware
[2019-03-05] MEDS ORDERED: DIATR MEGLU/DIATRIZOATE SODIUM 120 ML BOTTLE (GASTROGRAPHIN) ONE (16:07)
--- NOTE | 2019-03-05 18:00 | NUR ---
VOUCHER EXAMINER: pt.is A/Ox1, can follow simple commands, no any pain now, rest, HR 95-110 afib, SBP over 100, O2sat. 97-100%, continue 4L n/c, PM,skin care done, was drinking liquid contrast well, no coughing, no aspiration, keep HOB over 45, got multiple abdomen XRs for SBFT, evaluation is in process
--- NOTE | 2019-03-05 19:36 | NUR ---
STOCK HOUSE WORKER NOTES RECEIVED PT ON BED. A/O X1. ON NASAL CANNULA 4LPM, NO RESPIRATORY DISTRESS NOTED. ON TELE MONITOR AFIB 95. ZIMMER CATH DRAINING DARK YELLOW URINE. IV ACCESS ON JENNA MIDLINE PATENT AND INTACT. HEAD OF BED ELEVATED. SIDE RAILS UP. CALL LIGHT WITHIN REACH. BED IN LOW AND LOCKED POSITION. WILL MONITOR PT CLOSELY.
[2019-03-05] MEDS: VANCOMYCIN 1.25 GM in IV D5W 500 ML IV SCH (21:01)
[2019-03-05] MEDS: TAMSULOSIN 0.4 MG CAP.SR.24H PO SCH (21:01)
[2019-03-06] VITALS (17 sets, daily range): BP systolic 100–163; BP diastolic 58–114
[2019-03-06] MEDS: LACTULOSE 10 G/15 ML UDC (PYXIS) NG SCH ×5 (01:12→21:42)
[2019-03-06] MEDS: ALBUTEROL FS 2.5 MG/3 ML VIAL.NEB NEB SCH ×6 (03:39→23:32)
[2019-03-06] MEDS: IPRATROPIUM NEB FS 0.5 MG/2.5 ML AMPUL.NEB NEB SCH ×6 (03:39→23:32)
[2019-03-06 05:49] LABS: CALCIUM, SERUM 8.6 mg/dL (8.5-10.1); CREATININE 1.3 mg/dL (0.6-1.3); POTASSIUM 3.7 mmol/L (3.5-5.1)
--- NOTE | 2019-03-06 07:18 | NUR ---
MANAGER REPORT NOTES NO ACUTE CHANGES NOTED DURING THE SHIFT. PROVIDED COMFORT AND SAFETY. NO RESPIRATORY DISTRESS NOTED. WILL ENDORSE TO THE AM NURSE FOR CONTINUITY OF CARE.
--- NOTE | 2019-03-06 07:41 | NUR ---
SUPERVISOR WALL MIRROR DEPARTMENT: no SBO by XR result 03/05, pt.is awake, rest now, no grimacing, can answer Y/N, can follow simple commands, but confused, poor understandable re POC, Dx, directions, instructed again re POC, safety measures, Afib HR 80-100, no pacing, SBP over 90, below 150, on 4L n/c O2sat. over 94%, no SOB, NPO, swallow eval done yesterday/waiting report, was in room/updated, Digoxin level 2.57, said: stop Digoxin
--- NOTE | 2019-03-06 07:45 | NUR ---
PRODUCTION DISPATCHER: Deedee PIVL: occluded, leak-removed
[2019-03-06] MEDS: ESOMEPRAZOLE MAGNESIUM 40 MG SUSPDR.PKT GT SCH (08:29)
[2019-03-06] MEDS: POTASSIUM CHLORIDE 20 MEQ TAB.PRT.SR PO SCH (08:29)
[2019-03-06] MEDS: CLOTRIMAZOLE 1% 15 GM TUBE TP SCH ×2 (08:30→18:27)
[2019-03-06] MEDS: FUROSEMIDE 40 MG TABLET PO SCH (08:30)
[2019-03-06] MEDS: LEVETIRACETAM (500MG) 750 MG in IV NS 0.9% 100 ML IV SCH ×2 (08:31→21:31)
--- NOTE | 2019-03-06 10:30 | NUR ---
HAZARDOUS MATERIALS DRIVER: was in room, updated with pt.current status, O2sat., VS, I/O, NPO, negative SBO, agree for transfer. PT eval/Tx done: pt.is able to seat, stand up, got few steps, tolerated well for activity, see PT report
--- NOTE | 2019-03-06 11:00 | NUR ---
LEVERS LACE MACHINE OPERATOR: is in room, updated with pt.current condition, neurostatus, VS, I/O, NPO, meds, SBO negative, PT eval done, NPO, swallow eval done, agree for transfer, pt.needs to swallow reevaluation, see new orders
[2019-03-06] MEDS ORDERED: IV 1/2NS 1000 ML 1,000 ML IV PRN (12:00)
--- NOTE | 2019-03-06 14:40 | NUR ---
PT. TRANSFERRED HERE VIA BED TO 306-2.HOOKED UP TO TELE AND AFIB HRATE 107.IV INFUSING AND F/C TO GRV. DRAINAGE.SKIN WARM AND DRY.VS STABLE.ON [facility] BED.
--- NOTE | 2019-03-06 18:00 | NUR ---
NO CHANGE IN STATUS.
--- NOTE | 2019-03-06 19:50 | NUR ---
RN INITIAL NOTES: RECEIVED REPORT FROM YUMIKO Hernandez RN. PT TRANSFERRED FROM ICU THIS AFTERNOON. PT IN BED, AWAKE, A/O X1, ON 5L OXYGEN VIA NC RESPIRATIONS EVEN AND UNLABORED. ON TELE AFIB CONTROLLED HR 90. JENNA MIDLINE IN PLACED, PATENT AND FLUSHING WELL, INFUSING WITH 1/2 NS AT 30ML/HR. PT HAS ZIMMER CATHETER IN PLACED. PT ON SEIZURE PRECAUTIONS, SUCTION SET UP SECURED. BLE OFFLOADED. SAFETY PRECAUTIONS FOR FALL INITIATED, CALL LIGHT IN REACH, WILL CONTINUE MONITORING PT.
--- NOTE | 2019-03-06 21:00 | NUR ---
RN NOTES: SKIN ASSESSMENT PERFORMED, PLEASE SEE SKIN ASSESSMENT LOG.
[2019-03-06] MEDS: TAMSULOSIN 0.4 MG CAP.SR.24H PO SCH ×2 (21:41→21:55)
--- NOTE | 2019-03-06 21:42 | NUR ---
rn notes: pt refusing to take his meds, now he finally agree to take meds.
--- NOTE | 2019-03-06 21:43 | NUR ---
rn notes: after opening the medications, noted order for npo for the pt, wasted all meds, shown to another rn and hayley black. flomax medication and lactulose wasted with another rn, since i already opened it, all meds wasted in the bin
--- NOTE | 2019-03-06 21:44 | NUR ---
RN NOTES: wasted meds witnessed by satya deal
--- NOTE | 2019-03-06 22:00 | NUR ---
RN NOTES: CONNECTED PT TO CONTINUOUS PULSE OXIMETRY
--- NOTE | 2019-03-06 22:19 | NUR ---
rn notes: assisted supervisor wheel shop in providing bed bath to pt. complete linen change provided, z guard and mepilex applied for sacral area
[2019-03-06] MEDS: VANCOMYCIN 1.25 GM in IV D5W 500 ML IV SCH (22:21)
[2019-03-07] VITALS: BP 120/71
[2019-03-07] MEDS: LACTULOSE 10 G/15 ML UDC (PYXIS) NG SCH ×4 (02:00→20:00)
[2019-03-07] MEDS: IPRATROPIUM NEB FS 0.5 MG/2.5 ML AMPUL.NEB NEB SCH ×6 (03:37→23:12)
[2019-03-07] MEDS: ALBUTEROL FS 2.5 MG/3 ML VIAL.NEB NEB SCH ×6 (03:37→23:12)
[2019-03-07 04:00] VITALS: BP 112/77
--- NOTE | 2019-03-07 06:37 | NUR ---
RN CLOSING NOTES: PT REMAINS A/O X1, ON 5L OXYGEN VIA NC, RESPIRATIONS EVEN AND UNLABORED, NO SOB NOTED. ON NPO. TELE MONITORING AFIB CONTROLLED HR 78. REMAINS CONNECTED TO SPO2 MONITOR. JENNA MIDLINE REMAINS IN PLACED, PATENT AND FLUSHING WELL, INFUSING WITH IVF ORDERED. BLE KEPT OFFLOADED ON PILLOWS. REMAINS ON SEIZURE PRECAUTION. VS REMAINS STABLE, NEEDS ATTENDED. SAFETY PRECAUTIONS FOR FALL REMAINS ENGAGED, CALL LIGHT IN REACH, WILL ENDORSE TO DAY RN FOR CONTINUITY OF CARE
--- NOTE | 2019-03-07 07:20 | NUR ---
STAMP PAD MAKER OPENING NOTES RECEIVED PT AWAKE IN BED, A/O X1. TURKMEN SPEAKING, PT WITH CONFUSION NOTED. ON SUPPLEMENTARY OXYGEN AT 5L VIA NC, SATURATING 99%, WITH NO ACUTE RESPIRATORY DISTRESS. ON TELEMONITORNG WITH CONTROLLED AFIB, HR 89. PT DENIES ANY PAIN OR DISCOMFORT AT THIS TIME. ALSO DENIES CONCERNS OR QUESTIONS AT THIS TIME. IVF 1/2 NS AT 30ML/HR TO JENNA MIDLINE, INTACT AND FLUID INFUSING WELL. FC IN PLACE, WITH YELLOWISH URINE PRESENT IN THE BAG. PT KEPT COMFORTABLE. PT'S BED IN LOWEST, LOCKED, POSITION WITH SR X3. CALL LIGHT KEPT WITHIN REACH. WILL CONTINUE PLAN OF CARE.
[2019-03-07 07:32] LABS: BASOPHILS % (AUTO) 0.4 % (0.0-2.0); EOSINOPHILS % (AUTO) 0.4 % (0.0-6.0); HEMATOCRIT 37 % (39-51); HEMOGLOBIN 12.2 g/dL (13.5-17.5); LYMPHOCYTES # (AUTO) 0.9 /CMM (0.8-4.8); LYMPHOCYTES % (AUTO) 8.7 % (20.0-44.0); MEAN CORPUSCULAR HGB CONC 33 g/dl (31.0-36.0); MEAN CORPUSCULAR VOLUME 99 fL (80-96); MONOCYTES # (AUTO) 1.5 /CMM (0.1-1.30); MONOCYTES % (AUTO) 14.7 % (2.0-12.0); NEUTROPHILS % (AUTO) 75.8 % (43.0-81.0); PLATELET COUNT (AUTO) 73 /CMM (150-450); RED BLOOD CELL COUNT(AUTO) 3.77 MIL/uL (4.5-6.0); WHITE BLOOD COUNT (AUTO) 10.6 K/uL (4.3-11.0)
[2019-03-07 07:37] LABS: CALCIUM, SERUM 8.7 mg/dL (8.5-10.1); CREATININE 1.3 mg/dL (0.6-1.3); PHOSPHORUS 3.5 mg/dL (2.5-4.9); POTASSIUM 3.1 mmol/L (3.5-5.1)
[2019-03-07 08:00] VITALS: BP 116/67
[2019-03-07] MEDS: CLOTRIMAZOLE 1% 15 GM TUBE TP SCH ×2 (09:00→16:51)
[2019-03-07] MEDS: FUROSEMIDE 40 MG TABLET PO SCH (09:00)
[2019-03-07] MEDS: POTASSIUM CHLORIDE 20 MEQ TAB.PRT.SR PO SCH ×3 (09:00→09:50)
[2019-03-07] MEDS: ESOMEPRAZOLE MAGNESIUM 40 MG SUSPDR.PKT GT SCH (09:00)
[2019-03-07] MEDS: LEVETIRACETAM (500MG) 750 MG in IV NS 0.9% 100 ML IV SCH ×2 (09:12→20:13)
[2019-03-07] MEDS ORDERED: POTASSIUM CHLORIDE 10 MEQ/50 ML PREMIXED IVPB FOR PERIPHERAL LINE IV ONE (10:00)
--- NOTE | 2019-03-07 10:10 | NUR ---
MS RN NOTES PT FOR IV REPLACEMENT POTASSIUM. BOTH MEDROOM PYXIS ARE EMPTY. PHARMAY MADE AWARE. AWAITING FOR MEDICINE TO ARRIVE.
[2019-03-07] MEDS: POTASSIUM CL. PREMIX PERIPHER. 50 ML IV SCH ×4 (10:40→13:46)
--- NOTE | 2019-03-07 14:37 | NUR ---
MS RN NOTES /ANJALI MADE AWARE OF DR. CLAIRE'S ORDER TO D/C HYDRATION AND PT STILL ON NPO. DOESN'T WANT ANY HYDRATION AT THIS MOMENT. WILL CONTINUE TO MONITOR PT.
[2019-03-07 16:00] VITALS: BP 130/97
--- NOTE | 2019-03-07 18:19 | NUR ---
MS RN NOTES PT BLOOD SUGAR AT 68. HOSPITALIST//ANJALI MADE AWARE. AWAITING FOR RESPONSE.
--- NOTE | 2019-03-07 18:40 | NUR ---
MS RN CLOSING NOTES PT IN BED, INTERMITTENTLY DOZING OFF, AROUSED EASILY, A/O X1. SLOVAK SPEAKING, PT WITH EPISODES OF CONFUSION NOTED. ON SUPPLEMENTARY OXYGEN AT 5L VIA NC, SATURATING 100%, WITH NO ACUTE RESPIRATORY DISTRESS. PT DENIES ANY PAIN OR DISCOMFORT AT THIS TIME. ALSO DENIES CONCERNS OR QUESTIONS AT THIS TIME. PIV TO JENNA MIDLINE G18, FLUSHED WITH NS, INTACT AND OPERATIONAL. FC IN PLACE, WITH YELLOWISH URINE PRESENT IN THE BAG. ALL NEEDS AND CARE ATTENDED. PT KEPT COMFORTABLE. PT'S BED IN LOWEST, LOCKED, POSITION WITH SR X3. CALL LIGHT KEPT WITHIN REACH. WILL ENDORSE TO INCOMING NUT FEEDER NURSE FOR JULIANN.
--- NOTE | 2019-03-07 19:25 | NUR ---
RN INITIAL NOTES: RECEIVED REPORT FROM KALPESH DYKES. PT IN BED, AWAKE, A/O X1, ON 4L OXYGEN VIA NC RESPIRATIONS EVEN AND UNLABORED. PT CONNECTED TO CONTINUOUS PULSE OXIMETRY. PT ON ISOLATION MRSA RESP CULTURE. JENNA MIDLINE IN PLACED, ON HL. PT REMAINS ON NPO, AWAITING REPEAT SWALLOW EVAL TOMORROW AM. BLE OFFLOADE. SAFETY PRECAUTIONS FOR FALL INITIATED, CALL LIGHT IN REACH, WILL CONTINUE MONITORING PT.
--- NOTE | 2019-03-07 19:30 | NUR ---
rn notes: per day rn she clarified with pharmacist regarding order for bactroban, as pt mrsa nares, per pharmacist, bactroban tx completed dc'd by on the . but unsure if isolation still needed, as pt also isolation mrsa resp culture, will f/u with id .
--- NOTE | 2019-03-07 19:53 | NUR ---
RECTAL TEMP 101.1 Addendum: 03/07/19 at 5 by NEWTON MCKEON RN DISREGARD - WRONG PT
[2019-03-07 20:00] VITALS: BP 101/61
[2019-03-07 20:08] VITALS: BP 101/61
--- NOTE | 2019-03-07 20:11 | NUR ---
accu check: blood sugar check performed, pt npo, ivf dc'd by md, blood sugar result is 73. notified md, possible recommendation for ivf. awaiting for md to call back.
--- NOTE | 2019-03-07 21:22 | NUR ---
RN NOTES: PLACED 2ND CALL TO [facility], AWAITING FOR CALL BACK.
[2019-03-07] MEDS: TAMSULOSIN 0.4 MG CAP.SR.24H PO SCH (21:35)
[2019-03-07] MEDS: VANCOMYCIN 1.25 GM in IV D5W 500 ML IV SCH (21:35)
--- NOTE | 2019-03-07 21:52 | NUR ---
RN NOTES: RECEIVED CALL FROM DR LIBRA ORNELAS, RELAYED THE SITUATION, PER MD T/O OF D5 1/2 NS AT 30CC/HR. ORDER READ BACK, VERIFIED AND CARRIED OUT.
[2019-03-07] MEDS: IV D5/0.45 NACL 1,000 ML IV PRN (22:01)
[2019-03-08] MEDS: LACTULOSE 10 G/15 ML UDC (PYXIS) NG SCH ×4 (01:19→20:33)
--- NOTE | 2019-03-08 02:27 | NUR ---
RT NOTE PT. RECEIVED ON 4L NASAL CANNULA WITH SPO2 VALUE OF 100%, RESPIRATORY RATE OF 16 BPM, WITH A HEART RATE OF 74 BPM. AUSCULTATIONS REVEAL CLEAR BILATERAL UPPER AND MIDDLE LOBES AND DIMINISHED BILATERAL LOWER LOBES. NO SOB NOTED. PATIENT APPEARED LETHARGIC TO VOICE COMMAND. NO ADVERSE REACTIONS TO BREATHING TREATMENTS. WILL CONTINUE TO MONITOR. Addendum: 03/08/19 at 0234 by ANA HARO RT Amended: Links added.
[2019-03-08] MEDS: IPRATROPIUM NEB FS 0.5 MG/2.5 ML AMPUL.NEB NEB SCH ×6 (03:23→23:22)
[2019-03-08] MEDS: ALBUTEROL FS 2.5 MG/3 ML VIAL.NEB NEB SCH ×6 (03:23→23:22)
--- NOTE | 2019-03-08 06:46 | NUR ---
rn closing notes: pt remains confused,remains npo, a/o x1, on 4l oxygen via nc, no sob noted, remains on spo2 monitoring, spo2 100%, hr 85. jaison midline remains patent and flushing well, infusing with d5 1/2 ns at 30cc/hr. nixon catheter remains i placed, bag emptied by design editor. ble and bue offloaded. vs remains stable, needs attended. seizure precautions followed, suction set up remains in placed. safety precautions for fall remains engaged, call light in reach, will endorse to day rn for continuity of care.
[2019-03-08 08:00] VITALS: BP 117/86
--- NOTE | 2019-03-08 08:00 | NUR ---
MS RN NOTES PATIENT IN BED RESTING NO SOB OR ACUTE DISTRESS NOTED. PATIENT ALERT, ORIENTED X1. DENIES PAIN OR DISCOMFORT. MIDLINE INTACT PATIENT ON RIGHT UPPER ARM. ZIMMER CATH INTACT PATENT. WILL CONTINUE TO MONITOR.
[2019-03-08 08:06] LABS: CREATININE 1.2 mg/dL (0.6-1.3); MAGNESIUM 2.4 mg/dL (1.8-2.4); PHOSPHORUS 3.5 mg/dL (2.5-4.9); POTASSIUM 3.4 mmol/L (3.5-5.1)
[2019-03-08 08:25] LABS: BASOPHILS # (AUTO) 0.1 /CMM (0.0-0.2); BASOPHILS % (AUTO) 0.7 % (0.0-2.0); EOSINOPHILS % (AUTO) 1.4 % (0.0-6.0); HEMATOCRIT 45 % (39-51); HEMOGLOBIN 14.3 g/dL (13.5-17.5); LYMPHOCYTES # (AUTO) 1.1 /CMM (0.8-4.8); LYMPHOCYTES % (AUTO) 10.4 % (20.0-44.0); MEAN CORPUSCULAR HGB CONC 32 g/dl (31.0-36.0); MEAN CORPUSCULAR VOLUME 100 fL (80-96); MONOCYTES % (AUTO) 19.3 % (2.0-12.0); NEUTROPHILS % (AUTO) 68.2 % (43.0-81.0); PLATELET COUNT (AUTO) 93 /CMM (150-450); RED BLOOD CELL COUNT(AUTO) 4.48 MIL/uL (4.5-6.0); WHITE BLOOD COUNT (AUTO) 10.2 K/uL (4.3-11.0)
[2019-03-08] MEDS ORDERED: POTASSIUM CHLORIDE 20 MEQ TAB.PRT.SR PO SCH (09:00)
[2019-03-08] MEDS: ESOMEPRAZOLE MAGNESIUM 40 MG SUSPDR.PKT GT SCH (09:37)
[2019-03-08] MEDS: LEVETIRACETAM (500MG) 750 MG in IV NS 0.9% 100 ML IV SCH ×2 (09:37→21:11)
[2019-03-08] MEDS: FUROSEMIDE 40 MG TABLET PO SCH (09:38)
[2019-03-08] MEDS: POTASSIUM CHLORIDE 20 MEQ TAB.PRT.SR PO SCH (09:38)
[2019-03-08] MEDS: CLOTRIMAZOLE 1% 15 GM TUBE TP SCH ×2 (09:41→17:56)
[2019-03-08] MEDS: POTASSIUM CL. PREMIX PERIPHER. 50 ML IV SCH ×4 (10:30→15:16)
[2019-03-08 16:00] VITALS: BP 139/88
--- NOTE | 2019-03-08 18:31 | NUR ---
MS RN NOTES PATIENT ALERT, ORIENTED X 1. PATIENT IN BED RESTING. ALL DUE MEDICATIONS ADMINISTERED. ALL NEEDS MET. PATIENT WAS SEEN BY ST DIET CHANGED TO PUREE DIET. PATIENT ALSO SEEN BY PT ABLE TO STAND UP WITH ASSISTANCE. MIDLINE INTACT. WILL ENDORSE JULIANN TO PM CARE.
--- NOTE | 2019-03-08 20:40 | NUR ---
RN OPEN NOTES RECEIVED PATIENT RESTING IN BED, EASILY AROUSABLE. A/OX1. NO SIGNS OF DISTRESS OR DISCOMFORT. BREATHING EVEN AND UNLABORED. ON 4LPM O2 VIA NC. HAS JENNA MIDLINE WITH D5 1/2 NS INFUSING, PATENT AND INTACT, NO SIGNS OF REDNESS OR INFILTRATION. HAS F/C INTACT, DRAINING CLEAR GARO FLUID. BED IN LOW LOCKED POSITION WITH SIDE RAILS X3. CALL LIGHT WITHIN REACH. WILL CONTINUE TO MONITOR.
[2019-03-08 20:44] VITALS: BP 123/67
[2019-03-08] MEDS: TAMSULOSIN 0.4 MG CAP.SR.24H PO SCH (21:11)
[2019-03-09] MEDS: LACTULOSE 10 G/15 ML UDC (PYXIS) NG SCH ×4 (02:30→20:51)
[2019-03-09] MEDS: ALBUTEROL FS 2.5 MG/3 ML VIAL.NEB NEB SCH ×6 (03:56→23:32)
[2019-03-09] MEDS: IPRATROPIUM NEB FS 0.5 MG/2.5 ML AMPUL.NEB NEB SCH ×6 (03:56→23:32)
[2019-03-09] MEDS: IV D5/0.45 NACL 1,000 ML IV PRN (06:34)
[2019-03-09 07:03] LABS: CALCIUM, SERUM 9.1 mg/dL (8.5-10.1); CREATININE 1.7 mg/dL (0.6-1.3)
--- NOTE | 2019-03-09 07:37 | NUR ---
RN CLOSING NOTES PATIENT RESTING IN BED, EASILY AROUSABLE. A/OX1. NO SIGNS OF DISTRESS OR DISCOMFORT. BREATHING EVEN AND UNLABORED. ON 4LPM O2 VIA NC. HAS JENNA MIDLINE WITH D5 1/2 NS INFUSING, PATENT AND INTACT, NO SIGNS OF REDNESS OR INFILTRATION. HAS F/C INTACT, DRAINING CLOUDY GARO FLUID. ALL NEEDS MET. NO SIGNIFICANT CHANGES THROUGH THE NIGHT. REPOSITIONED PATIENT Q2H AND PRN. BED IN LOW LOCKED POSITION WITH SIDE RAILS X3. CALL LIGHT WITHIN REACH. ENDORSED TO AM SHIFT FOR JULIANN.
[2019-03-09 08:00] VITALS: BP 110/84
[2019-03-09] MEDS: FUROSEMIDE 40 MG TABLET PO SCH (09:11)
[2019-03-09] MEDS: POTASSIUM CHLORIDE 20 MEQ TAB.PRT.SR PO SCH ×4 (09:11→11:57)
[2019-03-09] MEDS: LEVETIRACETAM (250 MG) 250 MG TABLET PO SCH ×2 (09:11→20:51)
[2019-03-09] MEDS: CLOTRIMAZOLE 1% 15 GM TUBE TP SCH ×2 (09:21→16:52)
[2019-03-09] MEDS: ESOMEPRAZOLE MAGNESIUM 40 MG SUSPDR.PKT GT SCH (09:37)
[2019-03-09] MEDS ORDERED: FURO40TA5 PO (11:25)
[2019-03-09] MEDS ORDERED: POTA20TA83 PO (11:25)
--- NOTE | 2019-03-09 13:20 | NUR ---
MS RN NOTES PATIENT NOTED WITH INCREASED DISTENSION OF THE ABDOMEN AND INCREASED TENDERNESS, FIRM TO TOUCH, BOWL SOUND ARE PRESENT BUT HYPOACTIVE. PATIENT HAD ONE BIG BOWL MOVEMENT IN AM. NO SOB OR ACUTE DISTRESS NOTED. PATIENT APPEARS TO BE UNCOMFORTABLE. COMPLAINS OF PAIN TO ABDOMEN. DR. NORRIS MADE AWARE ORDERS FOR STAT CT OF THE ABDOMEN. NOTED AND CARRIED OUT.
--- NOTE | 2019-03-09 13:30 | NUR ---
MS RN NOTES ORDERS GIVEN BY DR. ALBA TO INSERT NG TUBE. NOTED AND CARRIED OUT.
--- NOTE | 2019-03-09 14:30 | NUR ---
MS RN NOTES CALLED DR. NORRIS TO INFORM OF CT RESULTS WAITING FOR CALL BACK.
[2019-03-09 16:00] VITALS: BP 102/56
--- NOTE | 2019-03-09 16:00 | NUR ---
MS RN NOTES PATIENT NOTED WITH LARGE BM AND NOTED PASSING LOTS OF GAS. PATIENTS ABDOMEN NOTED TO BE SOFTER. WILL CONTINUE TO MONITOR.
--- NOTE | 2019-03-09 18:33 | NUR ---
MS RN NOTES PATIENT ALERT ORIENTED X1. NO SOB OR ACUTE DISTRESS NOTED. AL DUE MEDICATIONS ADMINISTERED. ALL NEEDS MET. PATIENT PULLED OUT NG TUBE. PER MD NO NEED TO REINSERT NG. PATIENT SLEEPING IN ROOM. ZIMMER CATHETER INTACT PATENT. ABD DISTENDED WITH NORMAL BOWL SOUNDS. BED IN LOW LOCKED POSITION. CALL LIGHT WITHIN REACH. WILL CONTINUE TO MONITOR.
--- NOTE | 2019-03-09 19:20 | NUR ---
RN OPEN NOTES RECEIVED PATIENT RESTING IN BED, EASILY AROUSABLE. A/OX1. NO SIGNS OF DISTRESS OR DISCOMFORT. BREATHING EVEN AND UNLABORED. ON 4LPM O2 VIA NC. HAS JENNA MIDLINE, PATENT AND INTACT, NO SIGNS OF REDNESS OR INFILTRATION. HAS F/C PATENT AND INTACT. PATIENT NOTED TO HAVE ABD DISTENTION WITH ACTIVE BOWEL SOUNDS. BED IN LOW LOCKED POSITION WITH SIDE RAILS X3. CALL LIGHT WITHIN REACH. WILL CONTINUE TO MONITOR.
[2019-03-09 19:58] VITALS: BP 109/68
[2019-03-09] MEDS: TAMSULOSIN 0.4 MG CAP.SR.24H PO SCH (21:19)
[2019-03-10] MEDS: LACTULOSE 10 G/15 ML UDC (PYXIS) NG SCH ×4 (02:45→20:09)
[2019-03-10] MEDS: IPRATROPIUM NEB FS 0.5 MG/2.5 ML AMPUL.NEB NEB SCH ×5 (04:03→19:52)
[2019-03-10] MEDS: ALBUTEROL FS 2.5 MG/3 ML VIAL.NEB NEB SCH ×5 (04:03→19:52)
--- NOTE | 2019-03-10 07:20 | NUR ---
RN CLOSING NOTES PATIENT RESTING IN BED, EASILY AROUSABLE. A/OX1. NO SIGNS OF DISTRESS OR DISCOMFORT. BREATHING EVEN AND UNLABORED. ON 4LPM O2 VIA NC. HAS JENNA MIDLINE, PATENT AND INTACT, NO SIGNS OF REDNESS OR INFILTRATION. HAS F/C PATENT AND INTACT. ABD DISTENTION HAS IMPROVED. ALL NEEDS MET. NO SIGNIFICANT CHANGES THROUGH THE NIGHT. BED IN LOW LOCKED POSITION WITH SIDE RAILS X3. CALL LIGHT WITHIN REACH. WILL ENDORSE TO AM SHIFT FOR JULIANN.
--- NOTE | 2019-03-10 07:30 | NUR ---
RN OPENING NOTES PATIENT AWAKE AND RESTING IN BED. PATIENT ALERT AND ORIENTED X1. PT HAS Q4 BREATHING TREATMENTS. PT HAS CONTINUOUS PULSE OXIMETRY. PT HAS RIGHT UPPER ARM MIDLINE. PT ON PUREED DIET/HONEY THICK LIQUID. SAFETY PRECAUTIONS IN PLACE, BED IN LOWEST LOCKED POSITION, X3 SIDE RAILS UP AND CALL LIGHT WITHIN REACH. WILL CONTINUE TO MONITOR.
[2019-03-10 07:46] LABS: CALCIUM, SERUM 9.2 mg/dL (8.5-10.1); CREATININE 1.6 mg/dL (0.6-1.3); POTASSIUM 3.4 mmol/L (3.5-5.1)
[2019-03-10 08:00] VITALS: BP 118/81
[2019-03-10] MEDS: LEVETIRACETAM (250 MG) 250 MG TABLET PO SCH ×2 (09:43→21:40)
[2019-03-10] MEDS: ESOMEPRAZOLE MAGNESIUM 40 MG SUSPDR.PKT GT SCH (09:43)
[2019-03-10] MEDS: CLOTRIMAZOLE 1% 15 GM TUBE TP SCH ×2 (09:44→16:58)
[2019-03-10] MEDS: POTASSIUM CL. PREMIX PERIPHER. 50 ML IV SCH ×4 (09:44→13:12)
[2019-03-10 10:07] LABS: CMV, IgM <30.0 AU/mL (0.0-29.9)
[2019-03-10] MEDS ORDERED: IV NS 0.9% 1,000 ML IV PRN (11:09)
[2019-03-10 16:00] VITALS: BP 125/83
--- NOTE | 2019-03-10 17:07 | NUR ---
RN NOTES PER DR ANJALI KEENE CM NOT PLANNING ON DISCHARGING PATIENT TODAY.
[2019-03-10 17:14] LABS: CREATININE, URINE 86.5 MG/DL (30.0-125.0); URINE TOTAL PROTEIN 36.8 mg/dL (0-11.9)
[2019-03-10 18:04] LABS: EOSINOPHIL,URINE None Seen
--- NOTE | 2019-03-10 18:38 | NUR ---
RN CLOSING NOTES PATIENT AWAKE AND RESTING IN BED. PATIENT ALERT AND ORIENTED X1. PT HAS Q4 BREATHING TREATMENTS. PT HAS CONTINUOUS PULSE OXIMETRY. PT HAS RIGHT UPPER ARM MIDLINE RUNNING NS AT 75ML/HR. PT ON PUREED DIET/HONEY THICK LIQUID. SAFETY PRECAUTIONS IN PLACE, BED IN LOWEST LOCKED POSITION, X3 SIDE RAILS UP AND CALL LIGHT WITHIN REACH. WILL ENDORSE TO CHILD HEALTH ASSOCIATE NURSE FOR CONTINUITY OF CARE.
[2019-03-10 19:15] LABS: BILIRUBIN,URINE SMALL (NEGATIVE); BLOOD, URINE Small Ery/uL (NEGATIVE); KETONES,URINE Negative (NEGATIVE); LEUKOCYTE ESTERASE ,URINE Negative (NEGATIVE); NITRITE, URINE Negative (NEGATIVE); PH,URINE 5.5 (5.0-8.0); PROTEIN,URINE Trace mg/dl (NEGATIVE); UGLUCOSE Negative (NEGATIVE)
[2019-03-10 19:18] LABS: APPEARANCE,URINE HAZY (CLEAR); COLOR,URINE DARK YELLOW (YELLOW)
[2019-03-10 19:19] LABS: BACTERIA,URINE Few /HPF (None Seen); SQUAMOUS EPITHELIAL CELL,UR Few /HPF (None Seen); WBC,URINE 0-2 /HPF (0-3)
--- NOTE | 2019-03-10 19:30 | NUR ---
MS RN NOTES RECEIVED ON BED A/O X1,WITH LIMITED VERBAL RESPONSE,BREATHING NON LABORED,O2 4L/NC IN USED.ZIMMER CATH IN PLACE DRAINING YELLOWISH OUTPUT.NOTED SKIN DRYNESS ON BOTH LOWER EXTREMITIES,SACRAL.BUTTOCKS RASH,MANAGE WITH LOTRIMIN.IVF OF NS AT 75ML/HR RATE IN PROGRESS VIA IV PUMP ON RIGHT UPPER ARM MIDLINE.[employer] MATTRESS IN USED FOR SKIN MANAGEMENT.ISOLATION PRECAUTION FOR MRSA NARES.REPOSITION PER PROTOCOL.WILL CONTINUE TO MONITOR STATUS.
[2019-03-10 20:00] VITALS: BP 108/64
--- NOTE | 2019-03-10 20:09 | NUR ---
MS RN NOTES DUE LACTULOSE 20GM PO GIVEN,TAKEN WELL.NEGATIVE FOR ASPIRATION
[2019-03-10] MEDS: TAMSULOSIN 0.4 MG CAP.SR.24H PO SCH (21:40)
--- NOTE | 2019-03-10 22:00 | NUR ---
MS RN NOTES ACCU-CHECK BLOOD SUGAR CHECK 125MG/DL,NO INSULIN COVERAGE.
[2019-03-11] MEDS: IPRATROPIUM NEB FS 0.5 MG/2.5 ML AMPUL.NEB NEB SCH ×7 (00:10→23:37)
[2019-03-11] MEDS: ALBUTEROL FS 2.5 MG/3 ML VIAL.NEB NEB SCH ×7 (00:10→23:37)
[2019-03-11] MEDS: LACTULOSE 10 G/15 ML UDC (PYXIS) NG SCH ×4 (02:09→20:13)
--- NOTE | 2019-03-11 03:00 | NUR ---
MS RN NOTES TRANSFERRED TO ROOM 324-1,COHORT WITH OTHER PATIENT WITH SAME ISOLATION STATUS. TO CREATE ROOM FOR ADMISSION.
--- NOTE | 2019-03-11 06:29 | NUR ---
MS RN NOTES ABDOMEN SLIGHTLY DISTENDED,LACTULOSE TOLERATED WELL,WITH X1 SMALL AMOUNT OF BOWEL MOVEMENT.IVF IN PROGRESS.,REPOSITION PER PROTOCOL,AFEBRILE.WILL ENDORSE TO DAY NURSE FOR JULIANN.
[2019-03-11 07:18] LABS: HEMATOCRIT 41 % (39-51); HEMOGLOBIN 13.2 g/dL (13.5-17.5); LYMPHOCYTES # (AUTO) 0.3 /CMM (0.8-4.8); LYMPHOCYTES % (AUTO) 2.1 % (20.0-44.0); MEAN CORPUSCULAR HGB CONC 33 g/dl (31.0-36.0); MEAN CORPUSCULAR VOLUME 97 fL (80-96); MONOCYTES # (AUTO) 0.7 /CMM (0.1-1.30); MONOCYTES % (AUTO) 4.6 % (2.0-12.0); NEUTROPHILS # (AUTO) 14.5 /CMM (1.8-8.9); NEUTROPHILS % (AUTO) 93.3 % (43.0-81.0); RED BLOOD CELL COUNT(AUTO) 4.21 MIL/uL (4.5-6.0); WHITE BLOOD COUNT (AUTO) 15.6 K/uL (4.3-11.0)
[2019-03-11 07:45] LABS: ALBUMIN 2.2 g/dL (3.4-5.0); BILIRUBIN,TOTAL 4.5 mg/dL (0.2-1.0); CALCIUM, SERUM 9.2 mg/dL (8.5-10.1); CREATININE 1.6 mg/dL (0.6-1.3); MAGNESIUM 2.1 mg/dL (1.8-2.4); PHOSPHORUS 1.9 mg/dL (2.5-4.9); POTASSIUM 3.1 mmol/L (3.5-5.1)
[2019-03-11 07:54] LABS: PLATELET COUNT (AUTO) 40 /CMM (150-450)
--- NOTE | 2019-03-11 08:00 | NUR ---
MS RN RECEIVED ON BED, AWAKE, ORIENTED X1,PATIENT ON O2 3 LITERS ,SATURATING 96%, NOT IN DISTRESS, WILL MONITOR PATIENT'S CONDITION.
[2019-03-11] MEDS ORDERED: BUMETANIDE INJ 8 MG in IV NS 0.9% 48 ML IV ONE (08:30)
[2019-03-11] MEDS: ESOMEPRAZOLE MAGNESIUM 40 MG SUSPDR.PKT GT SCH (09:00)
[2019-03-11 09:11] VITALS: BP 115/69
[2019-03-11 09:19] LABS: BAND % (MANUAL) 12 % (0.0-5.0); LYMPHOCYTES % (MANUAL) 1 % (16-48); MONOCYTES % (MANUAL) 4 % (0-11.0); NEUTROPHILS % (MANUAL) 83 (42-76)
--- NOTE | 2019-03-11 10:00 | NUR ---
MS RN WAS SEEN BY SPEECH THERAPY, DUE MEDS GIVEN, WILL MONITOR PATIENT.
[2019-03-11] MEDS: POTASSIUM CHLORIDE 20 MEQ TAB.PRT.SR PO SCH ×5 (10:17→16:53)
[2019-03-11] MEDS: LEVETIRACETAM (250 MG) 250 MG TABLET PO SCH ×2 (10:18→21:12)
[2019-03-11] MEDS ORDERED: K PHOS NEUTRAL 250 MG TABLET PO ONE ×2 (11:00→14:30)
--- NOTE | 2019-03-11 11:00 | NUR ---
MS RN AM CARE DONE BY AUTOMATION CONTROLS ENGINEER,ALL NEEDS ATTENDED.
[2019-03-11 11:40] LABS: D-DIMER 16.32 mg/L(FEU (0.17-0.50)
--- NOTE | 2019-03-11 13:00 | NUR ---
ms rn was seen by jose alfredo nolasco/ orders made and carried out.
[2019-03-11] MEDS ORDERED: FEE PK DOSING 1 MIN EA MC ONE (14:06)
[2019-03-11] MEDS: CLOTRIMAZOLE 1% 15 GM TUBE TP SCH ×2 (14:32→17:31)
[2019-03-11] MEDS: VANCOMYCIN 1 GM in IV D5W 250 ML IV SCH (15:58)
--- NOTE | 2019-03-11 16:00 | NUR ---
ms satya lactic acid - 3.7 - called dr. veliz, no order at this time, give atb iv.
[2019-03-11 16:37] VITALS: BP 108/67
[2019-03-11] MEDS: MEROPENEM 1 G in IV NS 0.9% 100 ML IV SCH (16:55)
[2019-03-11 17:49] LABS: BILIRUBIN,DIRECT 3.1 mg/dL (0.0-0.2)
--- NOTE | 2019-03-11 18:00 | NUR ---
ms rn called dr. lambert w/ [facility] to have a gi consult, texted dr. rayo to see patient.
--- NOTE | 2019-03-11 19:00 | NUR ---
ms rn on bed, no distress noted.
--- NOTE | 2019-03-11 19:25 | NUR ---
MS RN NOTES RECEIVED REPORT FROM DEBBIE,PATIENT ON BED A/X 1-2,RESPONSIVE TO NAME,OPEN EYES,MUMBLES,ABDOMEN DISTENDED,ISOLATION PRECAUTION FOR MRSA NARES.MIDLINE SALINE LOCK INTACT AND PATENT.ON [employer] MATTRESS FOR SKIN MANAGEMENT.WILL CONTINUE TO MONITOR STATUS.
--- NOTE | 2019-03-11 19:30 | NUR ---
MS RN NOTES RELAYED BY DRUG REGULATORY AFFAIRS SPECIALIST,LACTIC ACID DRAWN AT 1655 WAS 4.0,NS 1 LITER JUST COMPLETED
[2019-03-11 20:00] VITALS: BP 124/75
--- NOTE | 2019-03-11 21:05 | NUR ---
MS RN NOTES INBOUND CALL CENTER REPRESENTATIVE FOR DR ALBA PAGE THIS TIME
[2019-03-11] MEDS: TAMSULOSIN 0.4 MG CAP.SR.24H PO SCH (21:12)
--- NOTE | 2019-03-11 21:14 | NUR ---
MS RN NOTES DR SIMPSON,SIZER HAND FOR DR ALBA CALLED BACK,MADE AWARE OF PATIENT HIGH LACTIC ACID,WITH ORDER TO GIVE NS 500ML BOLUS ONE TIME,NOTED AND CARRIED OUT.
[2019-03-11] MEDS ORDERED: IV NS 0.9% 500 ML IV ONE (21:30)
--- NOTE | 2019-03-12 01:00 | NUR ---
MS RN NOTES NS BOLUS 500ML TOLERATED WELL,NO SOB,O2 SAT WITH NORMAL LIMITS.
[2019-03-12 01:01] LABS: APPEARANCE,URINE Clear (CLEAR); BILIRUBIN,URINE SMALL (NEGATIVE); BLOOD, URINE Small Ery/uL (NEGATIVE); COLOR,URINE Yellow (YELLOW); KETONES,URINE Negative (NEGATIVE); LEUKOCYTE ESTERASE ,URINE Negative (NEGATIVE); NITRITE, URINE Negative (NEGATIVE); PH,URINE 6.5 (5.0-8.0); PROTEIN,URINE Negative (NEGATIVE); UGLUCOSE Negative (NEGATIVE); UROBILINOGEN,URINE >=8.0 EU/dL (0.2)
[2019-03-12 01:24] LABS: BACTERIA,URINE Few /HPF (None Seen); SQUAMOUS EPITHELIAL CELL,UR Rare /HPF (None Seen)
[2019-03-12] MEDS: LACTULOSE 10 G/15 ML UDC (PYXIS) NG SCH ×4 (02:37→22:19)
[2019-03-12] MEDS: IPRATROPIUM NEB FS 0.5 MG/2.5 ML AMPUL.NEB NEB SCH ×5 (04:06→19:59)
[2019-03-12] MEDS: ALBUTEROL FS 2.5 MG/3 ML VIAL.NEB NEB SCH ×5 (04:06→19:59)
[2019-03-12] MEDS: MEROPENEM 1 G in IV NS 0.9% 100 ML IV SCH ×2 (04:17→15:26)
--- NOTE | 2019-03-12 06:00 | NUR ---
MS RN NOTES REPORTED BY [employer] NAME SINA,BLOOD CULTURE RESULTS,GRAM NEGATIVE ARUN.ON IV MERREM AND VANCOMYCIN
--- NOTE | 2019-03-12 06:00 | NUR ---
MS RN NOTES HAD LARGE BROWN BOWEL MOVEMENT THIS TIME.ABDOMEN DISTENDED BUT SOFT,MOST LIKELY GAS.ZIMMER DRAINS WELL WITH YELLOW TO GARO COLORED URINE.MORNING CARE TOLERATED WELL.IN NO ACUTE DISTRESS.WILL ENDORSE TO DAY NURSE FOR JULIANN.
[2019-03-12 06:20] LABS: BASOPHILS % (AUTO) 0.1 % (0.0-2.0); EOSINOPHILS % (AUTO) 1.4 % (0.0-6.0); HEMATOCRIT 39 % (39-51); HEMOGLOBIN 12.6 g/dL (13.5-17.5); LYMPHOCYTES # (AUTO) 1.1 /CMM (0.8-4.8); LYMPHOCYTES % (AUTO) 7.1 % (20.0-44.0); MEAN CORPUSCULAR HGB CONC 33 g/dl (31.0-36.0); MEAN CORPUSCULAR VOLUME 97 fL (80-96); MONOCYTES # (AUTO) 1.3 /CMM (0.1-1.30); MONOCYTES % (AUTO) 8.2 % (2.0-12.0); NEUTROPHILS # (AUTO) 13.4 /CMM (1.8-8.9); NEUTROPHILS % (AUTO) 83.2 % (43.0-81.0); RED BLOOD CELL COUNT(AUTO) 3.96 MIL/uL (4.5-6.0)
[2019-03-12 06:38] LABS: PLATELET COUNT (AUTO) 32 /CMM (150-450)
--- NOTE | 2019-03-12 06:40 | NUR ---
MS RN NOTES REPORTED BY SECURITY ENGINEER NAME TAMIVy,PLATELET THIS MORNING 32,000,NO BLEEDING.CHARGE NURSE AWARE.
[2019-03-12 06:53] LABS: ALBUMIN 1.9 g/dL (3.4-5.0); BILIRUBIN,TOTAL 4.5 mg/dL (0.2-1.0); CREATININE 1.5 mg/dL (0.6-1.3); MAGNESIUM 2.1 mg/dL (1.8-2.4); PHOSPHORUS 2.9 mg/dL (2.5-4.9); POTASSIUM 3.4 mmol/L (3.5-5.1); TOTAL PROTEIN, SERUM 5.6 g/dL (6.4-8.2)
--- NOTE | 2019-03-12 07:30 | NUR ---
MS RN OPENING NOTES RECEIVED PT IN BED, ASLEEP, EASILY AROUSED. A/O X1. PT TOLERATING RA, WITH NO ACUTE RESPIRATORY DISTRESS NOTED. PT DENIES PAIN OR ANY DISCOMFORT AT THIS TIME. PT ALSO DENIES QUESTIONS OR CONCERNS AT THIS MOMENT. PIV TO JENNA MIDLINE, FLUSHED WITH NS, INTACT AND OPERATIONAL. PT KEPT COMFORTABLE IN BED. CALL LIGHT KEPT WITHIN REACH. PT'S BED IN LOWEST, LOCKED POSITION WITH SR X3. WILL CONTINUE PLAN OF CARE.
[2019-03-12] MEDS: LEVETIRACETAM (250 MG) 250 MG TABLET PO SCH ×2 (08:25→22:20)
[2019-03-12] MEDS: ESOMEPRAZOLE MAGNESIUM 40 MG SUSPDR.PKT GT SCH (08:28)
[2019-03-12] MEDS: VANCOMYCIN 1 GM in IV D5W 250 ML IV SCH (08:28)
[2019-03-12 08:33] LABS: EOSINOPHILS % (MANUAL) 1 % (0-4); LYMPHOCYTES % (MANUAL) 3 % (16-48); MONOCYTES % (MANUAL) 4 % (0-11.0); NEUTROPHILS % (MANUAL) 92 (42-76)
--- NOTE | 2019-03-12 09:15 | NUR ---
MS RN NOTES PT JUST HAD VENOUS DOPPLER TO LOWER EXTREMITIES, RESULTED POSITIVE. HOSPITALIST//DR ALBA NOTIFIED. AWAITING FOR RESPONSE.
--- NOTE | 2019-03-12 09:19 | NUR ---
MS RN NOTES SEEN AND EVALUATED BY GI / DR YU, ASSESSED PT AND REVIEWED CT OF ABDOMENT. PER DR YU NO INTERVENTIONS NEEDED FROM GI. AND PREFERS FOR PT TO SEE ALTERATION HAND. HOSPITALIST /DR ALBA MADE AWARE.
--- NOTE | 2019-03-12 09:20 | NUR ---
MS RN NOTES NO SIGNS OR SYMPTOMS OF BLEEDING NOTED. MD/DF MADE AWARE WELL.
[2019-03-12] MEDS ORDERED: POTASSIUM CHLORIDE 20 MEQ TAB.PRT.SR PO SCH (09:30)
--- NOTE | 2019-03-12 09:43 | NUR ---
MS RN NOTES HOSPITALIST /DR ALBA STATED "I CONSULTED WITH DR MACEDO YESTERDAY". NO NEW ORDERS AT THIS MOMENT. AWAITING FOR /DR MACEDO CONSULT. WILL CONTINUE TO MONITOR PT.
[2019-03-12 09:55] VITALS: BP 100/70
[2019-03-12] MEDS ORDERED: POTASSIUM CHLORIDE 20 MEQ POWDER PACKET PO SCH (10:00)
--- NOTE | 2019-03-12 10:46 | NUR ---
MS RN NOTES CALLED TWICE TO PHARMACY TO DELIVER LOTRIMIN CREAM. SPOKE TO ANDIE, STATED SHE'LL PUT IT IN.
[2019-03-12] MEDS: CLOTRIMAZOLE 1% 15 GM TUBE TP SCH ×2 (11:19→17:18)
[2019-03-12] MEDS ORDERED: DOSING PER PHARMACY-AMIKACI IV IV ONE (12:00)
--- NOTE | 2019-03-12 12:10 | NUR ---
MS RN NOTES LACTIC ACID RESULTED FROM 4.[address] ALBA MADE AWARE, AWAITING FOR RESPONSE.
[2019-03-12] MEDS ORDERED: AMIKACIN 500 MG in IV D5W 100 ML IV ONE (13:00)
[2019-03-12 15:08] LABS: PTH, INTACT 24 pg/mL (15-65)
[2019-03-12 16:13] VITALS: BP 105/72
[2019-03-12] MEDS: LACTOBACILLUS RHAMNOSUS GG 1 EACH CAP.SPRINK GT SCH (17:13)
--- NOTE | 2019-03-12 17:39 | NUR ---
MS RN NOTES PT SEEN AND EVALUATED BY DR. CHRIS MACEDO, PER MD NO INTERVENTIONS NEEDED AT THIS TIME. PT HAS NO SIGNS AND SYMPTOMS OF BLEEDING. PER DR MACEDO SHE'LL NOTIFY DR ALBA HERSELF. TO CONTINUE TO MONITOR PT.
--- NOTE | 2019-03-12 18:33 | NUR ---
MS RN NOTES DR CHRIS MACEDO ORDERED STAT NM PULMONARY VENTILATION TO R/O PE. NM MADE AWARE. CALLED TO [facility] TO OBTAIN CONSENT. CONSENT GIVEN VIA PHONE, WITNESSED BY ANOTHER RN/MEJIA. MIGDALIA/RAMOINTA MADE AWARE PT IS READY TO GO.
--- NOTE | 2019-03-12 18:52 | NUR ---
MS RN CLOSING NOTES PT IN BED, ASLEEP, EASILY AROUSED. A/O X1. PT TOLERATING RA, WITH NO ACUTE RESPIRATORY DISTRESS NOTED. PT DENIES PAIN OR ANY DISCOMFORT AT THIS TIME. PIV TO JENNA MIDLINE, FLUSHED WITH NS, INTACT AND OPERATIONAL. ALL NEEDS AND CARE ATTENDED AND PROVIDED. PT KEPT COMFORTABLE IN BED. CALL LIGHT KEPT WITHIN REACH. PT'S BED IN LOWEST, LOCKED POSITION WITH SR X3. WILL ENDORSE TO INCOMING NIGHT NURSE FOR JULIANN.
[2019-03-12 20:00] VITALS: BP 93/74
--- NOTE | 2019-03-12 20:30 | NUR ---
rn notes patient has been taken to radiology for nm pulmonary ventilation procedure accompanied by MAGRARITO Hyde.
[2019-03-12] MEDS: TAMSULOSIN 0.4 MG CAP.SR.24H PO SCH (22:21)
[2019-03-13] MEDS: ALBUTEROL FS 2.5 MG/3 ML VIAL.NEB NEB SCH ×7 (00:05→22:50)
[2019-03-13] MEDS: IPRATROPIUM NEB FS 0.5 MG/2.5 ML AMPUL.NEB NEB SCH ×7 (00:05→22:50)
[2019-03-13] MEDS: LACTULOSE 10 G/15 ML UDC (PYXIS) NG SCH ×4 (02:18→20:22)
[2019-03-13] MEDS: VANCOMYCIN 1 GM in IV D5W 250 ML IV SCH ×2 (03:31→20:23)
[2019-03-13] MEDS: MEROPENEM 1 G in IV NS 0.9% 100 ML IV SCH (04:55)
[2019-03-13 07:23] LABS: BASOPHILS % (AUTO) 0.1 % (0.0-2.0); EOSINOPHILS % (AUTO) 2.5 % (0.0-6.0); HEMATOCRIT 41 % (39-51); HEMOGLOBIN 13.2 g/dL (13.5-17.5); LYMPHOCYTES # (AUTO) 1.3 /CMM (0.8-4.8); LYMPHOCYTES % (AUTO) 11.8 % (20.0-44.0); MEAN CORPUSCULAR HGB CONC 32 g/dl (31.0-36.0); MEAN CORPUSCULAR VOLUME 97 fL (80-96); MONOCYTES # (AUTO) 1.4 /CMM (0.1-1.30); NEUTROPHILS # (AUTO) 8.3 /CMM (1.8-8.9); NEUTROPHILS % (AUTO) 73.6 % (43.0-81.0); WHITE BLOOD COUNT (AUTO) 11.3 K/uL (4.3-11.0)
--- NOTE | 2019-03-13 07:30 | NUR ---
MS RN OPENING NOTES RECEIVED PT IN BED, AWAKE. A/O X1-2. PT ON SUPPLEMENTARY OXYGEN AT 2LPM, WITH NO ACUTE RESPIRATORY DISTRESS NOTED. PT DENIES PAIN OR ANY DISCOMFORT AT THIS TIME. PIV TO JENNA MIDLINE, FLUSHED WITH NS, INTACT AND OPERATIONAL. PT KEPT COMFORTABLE IN BED. CALL LIGHT KEPT WITHIN REACH. PT'S BED IN LOWEST, LOCKED POSITION WITH SR X3. WILL CONTINUE PLAN OF CARE.
[2019-03-13 07:35] LABS: PLATELET COUNT (AUTO) 37 /CMM (150-450)
--- NOTE | 2019-03-13 07:37 | NUR ---
MS RN NOTES RECEIVED CALL FROM LAB. PLATELET RESULT OF 37. TO NOTIFY MD. PT HAS NO SIGNS AND SYMPTOMS OF BLEEDING NOTED. WILL CONTINUE TO MONITOR.
[2019-03-13 07:43] LABS: ALBUMIN 1.8 g/dL (3.4-5.0); BILIRUBIN,TOTAL 4.1 mg/dL (0.2-1.0); CALCIUM, SERUM 8.9 mg/dL (8.5-10.1); CREATININE 1.4 mg/dL (0.6-1.3); MAGNESIUM 2.2 mg/dL (1.8-2.4); PHOSPHORUS 3.4 mg/dL (2.5-4.9); POTASSIUM 3.5 mmol/L (3.5-5.1); TOTAL PROTEIN, SERUM 5.7 g/dL (6.4-8.2)
[2019-03-13 08:00] VITALS: BP 106/67
[2019-03-13] MEDS: LACTOBACILLUS RHAMNOSUS GG 1 EACH CAP.SPRINK GT SCH ×2 (08:11→17:30)
[2019-03-13] MEDS: LEVETIRACETAM (250 MG) 250 MG TABLET PO SCH ×2 (08:11→20:23)
[2019-03-13] MEDS: ESOMEPRAZOLE MAGNESIUM 40 MG SUSPDR.PKT GT SCH (08:12)
[2019-03-13] MEDS: CLOTRIMAZOLE 1% 15 GM TUBE TP SCH ×2 (08:22→17:45)
[2019-03-13 09:02] LABS: LYMPHOCYTES % (MANUAL) 12 % (16-48); MONOCYTES % (MANUAL) 16 % (0-11.0); NEUTROPHILS % (MANUAL) 72 (42-76)
--- NOTE | 2019-03-13 09:25 | NUR ---
RN NOTES /DR ALBA IN THE UNIT, MADE AWARE OF PLT AND SODIUM RESULTS.
[2019-03-13 10:00] VITALS: BP 110/60
[2019-03-13] MEDS: IV D5W 1,000 ML IV PRN (10:28)
[2019-03-13] MEDS ORDERED: CEFTRIAXONE 1GM BAG (ER ONLY) 1 GM/50 ML PIGGYBACK IV SCH (12:30)
[2019-03-13] MEDS: CEFTRIAXONE 1 G in IV D5W 50 ML IV SCH (14:00)
--- NOTE | 2019-03-13 15:00 | NUR ---
MS RN NOTES SEEN BY DR MACEDO, NO ORDERS NOTED AT THIS TIME. NO INTERVENTIONS TO BE DONE WELL AT THIS MOMENT PER MD.
[2019-03-13 15:50] VITALS: BP 105/69
--- NOTE | 2019-03-13 18:48 | NUR ---
MS RN CLOSING NOTES PT IN BED, AWAKE. A/O X1-2. PT ON SUPPLEMENTARY OXYGEN AT 2LPM, WITH NO ACUTE RESPIRATORY DISTRESS NOTED. PT DENIES PAIN OR ANY DISCOMFORT AT THIS TIME. IVF D5W AT 50ML/HR TO JENNA MIDLINE, FLUSHED WITH NS, INTACT AND OPERATIONAL. ALL NEEDS AND CARE ATTENDED AND PROVIDED. PT KEPT COMFORTABLE IN BED. CALL LIGHT KEPT WITHIN REACH. PT'S BED IN LOWEST, LOCKED POSITION WITH SR X3. WILL ENDORSE TO INCOMING NIGHT NURSE FOR JULIANN.
--- NOTE | 2019-03-13 19:07 | NUR ---
RN MS OPENING NOTES RECEIVED PATIENT IN BED SLEEPING BUT EASILY AROUSABLE VERBALLY RESPONSIVE A& OX2, ABLE TO FOLLOW TO SIMPLE DIRECTIONS,RESPIRATIONS EVEN AND UNLABORED WITH EQUAL RISE AND FALL OF CHEST, APPEARS TO BE FREE OF PAIN AT THIS TIME, NO FACIAL GRIMACING, DENIES PAIN AT THIS TIME. ON CONTINUOUS SP02 MONITORING 96% ON 2L VIA NC, NO RESPIRATORY DISTRESS PRESENT AT THIS TIME, IV SITE TO RIGHT UPPER ARM MIDLINE, INTACT AND PATENT, NO REDNESS, NO INFILTRATION PRESENT, DRESSING IS CLEAN,DRY ,INTACT, IVF RUNNING ORDERED,HEAD OF BED ELEVATED FOR ASPIRATION PRECAUTIONS, FLUIDS OFFERED AND TOLERATED ORDERED IN SMALL SIPS AND THICKENED ORDERED, ALL EXTREMITIES ELEVATED , HEELS FLOATED, SAFETY PRECAUTIONS IN PLACE, LOW BED AND LOCKED, BED ALARM IN PLACE, REMAINS COMFORTABLE AT THIS TIME ,WILL CONTINUE TO MONITOR.
[2019-03-13 20:00] VITALS: BP_SYST 105; BP_SYST 106; BP_DIAS 67
[2019-03-13] MEDS: TAMSULOSIN 0.4 MG CAP.SR.24H PO SCH (21:09)
[2019-03-13 22:10] VITALS: BP 105/67
[2019-03-14] MEDS: LACTULOSE 10 G/15 ML UDC (PYXIS) NG SCH ×4 (02:27→20:31)
[2019-03-14] MEDS: ALBUTEROL FS 2.5 MG/3 ML VIAL.NEB NEB SCH ×6 (03:03→22:53)
[2019-03-14] MEDS: IPRATROPIUM NEB FS 0.5 MG/2.5 ML AMPUL.NEB NEB SCH ×6 (03:03→22:53)
--- NOTE | 2019-03-14 06:44 | NUR ---
RN MS CLOSING NOTES PATIENT IN BED SLEEPING BUT EASILY AROUSABLE VERBALLY RESPONSIVE A&OX2, ABLE TO FOLLOW TO SIMPLE DIRECTIONS,RESPIRATIONS EVEN AND UNLABORED WITH EQUAL RISE AND FALL OF CHEST, APPEARS TO BE FREE OF PAIN AT THIS TIME, NO FACIAL GRIMACING, DENIES PAIN AT THIS TIME. ON CONTINUOUS SP02 MONITORING 96% ON 3L VIA NC, NO RESPIRATORY DISTRESS PRESENT AT THIS TIME, IV SITE TO RIGHT UPPER ARM MIDLINE, INTACT AND PATENT, NO REDNESS, NO INFILTRATION PRESENT, DRESSING IS CLEAN,DRY ,INTACT, IVF RUNNING ORDERED,HEAD OF BED ELEVATED FOR ASPIRATION PRECAUTIONS, FLUIDS OFFERED AND TOLERATED ORDERED IN SMALL SIPS AND THICKENED ORDERED, ALL EXTREMITIES ELEVATED , HEELS FLOATED, SAFETY PRECAUTIONS IN PLACE, LOW BED AND LOCKED, BED ALARM IN PLACE,SACRAL SKIN IS INTACT, FREQUENT OFFLOADING AND REPOSITIONING DONE THROUGHOUT SHIFT, HEELS OFFLOADED, REMAINS COMFORTABLE AT THIS TIME ,WILL CONTINUE TO MONITOR AND ENDORSE TO NEXT SHIFT.
[2019-03-14 07:03] LABS: BASOPHILS % (AUTO) 0.3 % (0.0-2.0); EOSINOPHILS % (AUTO) 4.5 % (0.0-6.0); HEMATOCRIT 39 % (39-51); HEMOGLOBIN 12.8 g/dL (13.5-17.5); LYMPHOCYTES # (AUTO) 1.4 /CMM (0.8-4.8); LYMPHOCYTES % (AUTO) 14.5 % (20.0-44.0); MEAN CORPUSCULAR HGB CONC 33 g/dl (31.0-36.0); MEAN CORPUSCULAR VOLUME 97 fL (80-96); MONOCYTES # (AUTO) 1.1 /CMM (0.1-1.30); MONOCYTES % (AUTO) 10.9 % (2.0-12.0); NEUTROPHILS % (AUTO) 69.8 % (43.0-81.0); RED BLOOD CELL COUNT(AUTO) 4.02 MIL/uL (4.5-6.0)
[2019-03-14 07:39] LABS: PLATELET COUNT (AUTO) 38 /CMM (150-450)
[2019-03-14 07:40] LABS: ALBUMIN 1.6 g/dL (3.4-5.0); BILIRUBIN,TOTAL 3.3 mg/dL (0.2-1.0); CALCIUM, SERUM 8.7 mg/dL (8.5-10.1); CREATININE 1.3 mg/dL (0.6-1.3); MAGNESIUM 2.1 mg/dL (1.8-2.4); PHOSPHORUS 3.7 mg/dL (2.5-4.9); POTASSIUM 3.4 mmol/L (3.5-5.1); TOTAL PROTEIN, SERUM 5.7 g/dL (6.4-8.2)
[2019-03-14 08:00] VITALS: BP 107/76
--- NOTE | 2019-03-14 08:01 | NUR ---
rn ms opening notes Patient received in nasal cannula, no sob noted, a/o x2 and shows no s/s of pain at this time. Duong remains draining with R UA midline with d5W@50 ml per hour. Bed at the lowest setting, call light within reach, side rails up x2.
[2019-03-14 08:15] LABS: BAND % (MANUAL) 2 % (0.0-5.0); EOSINOPHILS % (MANUAL) 4 % (0-4); LYMPHOCYTES % (MANUAL) 10 % (16-48); MONOCYTES % (MANUAL) 11 % (0-11.0); NEUTROPHILS % (MANUAL) 73 (42-76)
[2019-03-14] MEDS: LEVETIRACETAM (250 MG) 250 MG TABLET PO SCH ×2 (08:50→21:19)
[2019-03-14] MEDS: LACTOBACILLUS RHAMNOSUS GG 1 EACH CAP.SPRINK GT SCH ×2 (08:50→17:06)
[2019-03-14] MEDS: ESOMEPRAZOLE MAGNESIUM 40 MG SUSPDR.PKT GT SCH (08:52)
[2019-03-14] MEDS: CLOTRIMAZOLE 1% 15 GM TUBE TP SCH ×2 (08:52→17:07)
[2019-03-14 10:00] VITALS: BP 107/76
[2019-03-14] MEDS ORDERED: POTASSIUM CHLORIDE 20 MEQ TAB.PRT.SR PO SCH (11:00)
[2019-03-14] MEDS: CEFTRIAXONE 1 G in IV D5W 50 ML IV SCH (12:19)
[2019-03-14] MEDS: IV D5W 1,000 ML IV PRN (12:33)
[2019-03-14] MEDS: VANCOMYCIN 1 GM in IV D5W 250 ML IV SCH (15:08)
[2019-03-14 16:00] VITALS: BP 118/77
--- NOTE | 2019-03-14 18:36 | NUR ---
RN MS CLOSING NOTES Patient remains on 2L nasal cannula, no sob noted, patient a/o x2. Duong cath draining well. Patient takes crushed medications well. R UA midline with D5W @ 50 mL per hour. Bed at the lowest setting, call light within reach, side rails up x2. Will give report to NOC RN for JULIANN bedside.
--- NOTE | 2019-03-14 19:56 | NUR ---
MS/RN OPENING NOTES PATIENT IN BEDALERT X1, ON CONTINOUS PULSE OXIMETER, WITH OXYGENATION AT 98% , OXYGEN VIA NC AT 2L. SKIN WARM TO TOUCH, RESPIRATIONS EVEN AND UNLABORED, ON CONTACT ISOLATION FOR MRSA NARES, CONTACT ISOLATION PROTOCOL FOLLOERD, MONITORING FOR ANY S/S OF BLEEDING, ZIMMER CATHTER WITH OUTPUT URINE DARK COLORED ,JENNA MIDLINE PATENT WITH D5W AT 50ML/HR, NO PAIN OBSERVEDM WILL MONITOR, RECEIVED ENDORSEMENT FROM AM RN FOR JULIANN WILL MONITOR. BED LOCKED, CALL LIGHTS WITHIN REACH. NO NEW ORDER, PLATELET 37 l SODIUM AT 160. WILL MONITOR FOR ANY CHANGES PER MD.
[2019-03-14 20:00] VITALS: BP 105/72
[2019-03-14] MEDS: TAMSULOSIN 0.4 MG CAP.SR.24H PO SCH (21:19)
[2019-03-14 22:00] VITALS: BP 105/72
--- NOTE | 2019-03-15 02:30 | NUR ---
MS/RN NOTES PATIENT REPOSITONED FOR COMFORT, KEPT COMFORTABLE, PICTURES TAKEN EXCEPT BUTTOCKS, WITH REDNESS APPLED ZGUARD. MONITORED FOR AN CHANGES. KEPT SKIN INTACT DRY.ZIMMER BAG REPLACED,
[2019-03-15] MEDS: LACTULOSE 10 G/15 ML UDC (PYXIS) NG SCH ×4 (03:21→20:32)
[2019-03-15] MEDS: IPRATROPIUM NEB FS 0.5 MG/2.5 ML AMPUL.NEB NEB SCH ×6 (03:56→23:02)
[2019-03-15] MEDS: ALBUTEROL FS 2.5 MG/3 ML VIAL.NEB NEB SCH ×6 (03:56→23:02)
[2019-03-15 06:07] LABS: *SPE A/G RATIO 0.8 (0.7-1.7); *SPE ALBUMIN 2.5 g/dL (2.9-4.4); *SPE ALPHA-1-GLOBULIN 0.3 g/dL (0.0-0.4); *SPE ALPHA-2-GLOBULIN 0.6 g/dL (0.4-1.0); *SPE BETA GLOBULIN 0.9 g/dL (0.7-1.3); *SPE GLOBULIN, TOTAL 3.1 g/dL (2.2-3.9); *SPE M-SPIKE Not Observed g/dL (Not Observed); *SPEGAMMA GLOBULIN 1.3 g/dL (0.4-1.8)
[2019-03-15 06:24] LABS: BASOPHILS % (AUTO) 0.4 % (0.0-2.0); HEMATOCRIT 41 % (39-51); HEMOGLOBIN 13.2 g/dL (13.5-17.5); LYMPHOCYTES # (AUTO) 1.3 /CMM (0.8-4.8); LYMPHOCYTES % (AUTO) 12.3 % (20.0-44.0); MEAN CORPUSCULAR HGB CONC 32 g/dl (31.0-36.0); MEAN CORPUSCULAR VOLUME 97 fL (80-96); MONOCYTES % (AUTO) 9.8 % (2.0-12.0); NEUTROPHILS # (AUTO) 7.8 /CMM (1.8-8.9); NEUTROPHILS % (AUTO) 74.5 % (43.0-81.0); RED BLOOD CELL COUNT(AUTO) 4.21 MIL/uL (4.5-6.0); WHITE BLOOD COUNT (AUTO) 10.5 K/uL (4.3-11.0)
[2019-03-15 06:28] LABS: ALBUMIN 1.6 g/dL (3.4-5.0); BILIRUBIN,TOTAL 3.3 mg/dL (0.2-1.0); CALCIUM, SERUM 8.7 mg/dL (8.5-10.1); CREATININE 1.3 mg/dL (0.6-1.3); MAGNESIUM 2.3 mg/dL (1.8-2.4); PHOSPHORUS 3.8 mg/dL (2.5-4.9); POTASSIUM 3.1 mmol/L (3.5-5.1); TOTAL PROTEIN, SERUM 5.8 g/dL (6.4-8.2)
--- NOTE | 2019-03-15 06:40 | NUR ---
MS/RN NOTES CRITICAL LAB RESULT REPORTED BY [facility] FOR SODIUM OF 159 FROM 160 YESTERDAY, MD TO BE INFORMED.
[2019-03-15 06:44] LABS: PLATELET COUNT (AUTO) 44 /CMM (150-450)
--- NOTE | 2019-03-15 06:44 | NUR ---
MS/RN NOTES RECEIVED CRITICAL LAB RESULT FROM LAB FOR SODIUM LEVEL AT 159. TO FOLLOW UP RESULT TO .
--- NOTE | 2019-03-15 06:45 | NUR ---
MS/RN NOTES PATIENT IN BED, RESTING IN BED. REQUIRE EXTENSIVE ASSISTANCE IN TURNING AND REPOSITION. WILL MONITOR AND ENDORSE TO AM RN FOR JULIANN. BED LOCKED, CALL LIGHTS WITHIN REACH. ZIMMER CATHETER PATENT DRAINING DARK COLOR /TEA COLOR URINE. ON OXYGEN AT 3LITER VIA NC.
--- NOTE | 2019-03-15 07:15 | NUR ---
MS RN OPENING NOTES RECEIVED PT AWAKE, IN BED. A/O X2. ON SUPPLEMENTARY OXYGEN VIA NC AT 2LPM, WITH NO ACUTE RESPIRATORY DISTRESS NOTED. PT ABLE TO SPEAK. PT DENIES ANY PAIN OR DISCOMFORT AT THIS MOMENT. ALSO DENIES QUESTIONS AND CONCERNS AT THE MOMENT. IVF D5W AT 50ML/HR TO JENNA MIDLINE, INTACT AND FLUID INFUSING WELL. PT KEPT COMFORTABLE, HOB ELEVATED. PT'S BED IN LOWEST, LOCKED POSITION WITH SR X3. CALL LIGHT KEPT WITHIN REACH. WILL CONTINUE PLAN OF CARE.
[2019-03-15 08:00] VITALS: BP 106/61
[2019-03-15 08:13] LABS: BAND % (MANUAL) 4 % (0.0-5.0); EOSINOPHILS % (MANUAL) 4 % (0-4); LYMPHOCYTES % (MANUAL) 14 % (16-48); MONOCYTES % (MANUAL) 5 % (0-11.0); NEUTROPHILS % (MANUAL) 73 (42-76)
[2019-03-15] MEDS: LACTOBACILLUS RHAMNOSUS GG 1 EACH CAP.SPRINK GT SCH ×2 (08:21→17:30)
[2019-03-15] MEDS: ESOMEPRAZOLE MAGNESIUM 40 MG SUSPDR.PKT GT SCH (08:21)
[2019-03-15] MEDS: VANCOMYCIN 1 GM in IV D5W 250 ML IV SCH (08:21)
[2019-03-15] MEDS: LEVETIRACETAM (250 MG) 250 MG TABLET PO SCH ×2 (08:21→20:44)
[2019-03-15] MEDS ORDERED: POTASSIUM CL. PREMIX PERIPHER. 50 ML IV SCH (09:20)
[2019-03-15 10:00] VITALS: BP 106/61
[2019-03-15] MEDS: POTASSIUM CL. PREMIX PERIPHER. 50 ML IV SCH ×4 (10:21→15:00)
[2019-03-15] MEDS: HYDROCHLOROTHIAZIDE 25 MG TABLET PO SCH (10:22)
[2019-03-15] MEDS: CLOTRIMAZOLE 1% 15 GM TUBE TP SCH ×2 (10:23→17:30)
[2019-03-15] MEDS: CEFTRIAXONE 1 G in IV D5W 50 ML IV SCH (13:16)
[2019-03-15 16:00] VITALS: BP 90/51
--- NOTE | 2019-03-15 19:44 | NUR ---
MS RN CLOSING NOTES PT AWAKE, IN BED. A/O X2. ON SUPPLEMENTARY OXYGEN VIA NC AT 2LPM, WITH NO ACUTE RESPIRATORY DISTRESS NOTED. PT ABLE TO SPEAK. PT DENIES ANY PAIN OR DISCOMFORT AT THIS MOMENT. ALSO DENIES QUESTIONS AND CONCERNS AT THE MOMENT. IVF D5W AT 60ML/HR TO JENNA MIDLINE, INTACT AND FLUID INFUSING WELL. PT KEPT COMFORTABLE, HOB ELEVATED. ALL NEEDS AND CARE ATTENDED AND PROVIDED. PT'S BED IN LOWEST, LOCKED POSITION WITH SR X3. CALL LIGHT KEPT WITHIN REACH. ENDORSED TO DISTRIBUTION CENTER MANAGER NURSE FOR JULIANN.
--- NOTE | 2019-03-15 19:46 | NUR ---
MS/RN NOTES RECEIVED PT. LYING IN BED RESTING. PT. IS EASILY AROUSABLE TO NAME. AWAKE, ALERT AND ORIENTED X1-2. BREATHING EVEN AND UNLABORED ON 2LPM O2 VIA NC. NO SOB, RESPIRATORY DISTRESS OR COMPLAINTS OF PAIN NOTED AT THIS TIME. PT. WITH RIGHT UPPER ARM MIDLINE PRESENT, PATENT AND INTACT ADMINISTERING TO PT. D5W @ 60 ML/HR. PT. WITH ZIMMER CATHETER PRESENT, PATENT AND INTACT. ASPIRATION, SAFETY, BLEEDING AND CONTACT ISOLATION PRECAUTIONS IMPLEMENTED AND IN PLACE. BED LOCKED AND IN LOWEST POSITION, SIDE RAILS UP X3, BED ALARM ON, CALL LIGHT WITHIN REACH, WILL CONTINUE TO MONITOR.
[2019-03-15 20:00] VITALS: BP 115/75
[2019-03-15] MEDS: TAMSULOSIN 0.4 MG CAP.SR.24H PO SCH (21:41)
[2019-03-16] MEDS: VANCOMYCIN 1 GM in IV D5W 250 ML IV SCH (02:18)
[2019-03-16] MEDS: LACTULOSE 10 G/15 ML UDC (PYXIS) NG SCH ×4 (02:18→20:51)
[2019-03-16] MEDS: ALBUTEROL FS 2.5 MG/3 ML VIAL.NEB NEB SCH ×6 (03:29→23:11)
[2019-03-16] MEDS: IPRATROPIUM NEB FS 0.5 MG/2.5 ML AMPUL.NEB NEB SCH ×6 (03:29→23:11)
[2019-03-16] MEDS: IV D5W 1,000 ML IV PRN ×2 (05:23→21:16)
--- NOTE | 2019-03-16 06:14 | NUR ---
MS/RN NOTES PT. IS LYING IN BED RESTING. BREATHING EVEN AND UNLABORED ON 2LPM O2 VIA NC. NO SOB, RESPIRATORY DISTRESS OR COMPLAINTS OF PAIN NOTED AT THIS TIME AND THROUGHOUT SHIFT. PT. WITH RIGHT UPPER ARM MIDLINE PRESENT, PATENT AND INTACT ADMINISTERING TO PT. D5W @ 60 ML/HR. PT. WITH ZIMMER CATHETER PRESENT, PATENT AND INTACT. ALL PT. NEEDS MET. PT. OFFLOADED, TURNED AND REPOSITIONED Q2H AND NEEDED. ASPIRATION, SAFETY, BLEEDING AND CONTACT ISOLATION PRECAUTIONS IMPLEMENTED AND IN PLACE. BED LOCKED AND IN LOWEST POSITION, SIDE RAILS UP X3, BED ALARM ON, CALL LIGHT WITHIN REACH, WILL ENDORSE TO DAYSHIFT NURSE FOR CONTINUITY OF CARE.
[2019-03-16 07:13] LABS: CALCIUM, SERUM 8.6 mg/dL (8.5-10.1); CREATININE 1.2 mg/dL (0.6-1.3); MAGNESIUM 2.4 mg/dL (1.8-2.4); PHOSPHORUS 3.7 mg/dL (2.5-4.9); POTASSIUM 3.2 mmol/L (3.5-5.1)
--- NOTE | 2019-03-16 07:20 | NUR ---
MS/RN - Critical Lab Value Relayed critical result sodium [address] Quinn with no new order at this time.
[2019-03-16 07:58] LABS: BASOPHILS # (AUTO) 0.2 /CMM (0.0-0.2); BASOPHILS % (AUTO) 1.6 % (0.0-2.0); EOSINOPHILS % (AUTO) 4.3 % (0.0-6.0); HEMATOCRIT 38 % (39-51); HEMOGLOBIN 12.7 g/dL (13.5-17.5); LYMPHOCYTES % (AUTO) 9.9 % (20.0-44.0); MEAN CORPUSCULAR HGB CONC 33 g/dl (31.0-36.0); MEAN CORPUSCULAR VOLUME 97 fL (80-96); MONOCYTES # (AUTO) 0.5 /CMM (0.1-1.30); MONOCYTES % (AUTO) 4.6 % (2.0-12.0); NEUTROPHILS # (AUTO) 8.4 /CMM (1.8-8.9); NEUTROPHILS % (AUTO) 79.6 % (43.0-81.0); RED BLOOD CELL COUNT(AUTO) 3.96 MIL/uL (4.5-6.0); WHITE BLOOD COUNT (AUTO) 10.5 K/uL (4.3-11.0)
[2019-03-16 08:00] VITALS: BP 96/65
--- NOTE | 2019-03-16 08:00 | NUR ---
MS/RN - Assessment Patient is awake, alert to self, no complaints overnight, denies pain, no apparent distress noted, afebrile, currently on oxygen at 2lpm via NC. IVF infusing well on the JENNA midline with no signs of infiltration. Morning labs reviewed, critical results relayed to Dr. Quinn. Patient assisted with turning and repositioning for skin management. Fall and aspiration precautions maintained. Contact isolation observed for MRSA nares. Will continue with current medical management.
[2019-03-16] MEDS: LEVETIRACETAM (250 MG) 250 MG TABLET PO SCH ×2 (08:35→20:51)
[2019-03-16] MEDS: LACTOBACILLUS RHAMNOSUS GG 1 EACH CAP.SPRINK GT SCH ×2 (08:36→16:28)
[2019-03-16] MEDS: HYDROCHLOROTHIAZIDE 25 MG TABLET PO SCH (08:36)
[2019-03-16] MEDS: ESOMEPRAZOLE MAGNESIUM 40 MG SUSPDR.PKT GT SCH (08:40)
[2019-03-16] MEDS: CLOTRIMAZOLE 1% 15 GM TUBE TP SCH ×2 (08:41→16:28)
[2019-03-16 09:20] LABS: PLATELET COUNT (AUTO) 46 /CMM (150-450)
--- NOTE | 2019-03-16 10:05 | NUR ---
MS/ RN - Critical lab value Lab called for positive blood culture result - gram negative rods. Dr. Quinn at bedside made aware.
[2019-03-16 10:30] LABS: EOSINOPHILS % (MANUAL) 2 % (0-4); LYMPHOCYTES % (MANUAL) 4 % (16-48); MONOCYTES % (MANUAL) 9 % (0-11.0); NEUTROPHILS % (MANUAL) 85 (42-76)
[2019-03-16] MEDS: POTASSIUM CHLORIDE 20 MEQ POWDER PACKET GT SCH ×2 (10:44→12:04)
[2019-03-16] MEDS: CEFTRIAXONE 1 G in IV D5W 50 ML IV SCH (12:10)
[2019-03-16 16:00] VITALS: BP 101/70
--- NOTE | 2019-03-16 18:00 | NUR ---
MS/RN - End of shift summary No significant change in condition noted, remain afebrile, no c/o pain, not in any form of distress. Anticipate discharge once bed is available at [facility]. Will continue with current medical management.
--- NOTE | 2019-03-16 19:30 | NUR ---
MS/RN NOTES RECEIVED PT. LYING IN BED, PT. IS AWAKE, ALERT AND ORIENTED X1-2. BREATHING EVEN AND UNLABORED ON 2LPM O2 VIA NC. NO SOB, RESPIRATORY DISTRESS OR COMPLAINTS OF PAIN NOTED AT THIS TIME. PT. WITH RIGHT UPPER ARM MIDLINE PRESENT, PATENT AND INTACT ADMINISTERING TO PT. D5W @ 60 ML/HR. PT. WITH ZIMMER CATHETER PRESENT, PATENT AND INTACT. ASPIRATION, SAFETY, BLEEDING AND CONTACT ISOLATION PRECAUTIONS IMPLEMENTED AND IN PLACE. BED LOCKED AND IN LOWEST POSITION, SIDE RAILS UP X3, BED ALARM ON, CALL LIGHT WITHIN REACH, WILL CONTINUE TO MONITOR.
[2019-03-16 20:00] VITALS: BP 117/72
[2019-03-16] MEDS: TAMSULOSIN 0.4 MG CAP.SR.24H PO SCH (21:08)
[2019-03-17] MEDS: IPRATROPIUM NEB FS 0.5 MG/2.5 ML AMPUL.NEB NEB SCH ×4 (02:39→14:48)
[2019-03-17] MEDS: ALBUTEROL FS 2.5 MG/3 ML VIAL.NEB NEB SCH ×4 (02:39→14:48)
[2019-03-17] MEDS: LACTULOSE 10 G/15 ML UDC (PYXIS) NG SCH ×3 (03:04→14:09)
--- NOTE | 2019-03-17 06:18 | NUR ---
MS/RN NOTES PT. IS LYING IN BED RESTING. BREATHING EVEN AND UNLABORED ON 2LPM O2 VIA NC. NO SOB, RESPIRATORY DISTRESS OR COMPLAINTS OF PAIN NOTED AT THIS TIME. PT. WITH RIGHT UPPER ARM MIDLINE PRESENT, PATENT AND INTACT ADMINISTERING TO PT. D5W @ 60 ML/HR. PT. WITH ZIMMER CATHETER PRESENT, PATENT AND INTACT. ALL PT. NEEDS MET. PT. OFFLOADED, TURNED AND REPOSITIONED Q2H AND NEEDED. ASPIRATION, SAFETY, BLEEDING AND CONTACT ISOLATION PRECAUTIONS IMPLEMENTED AND IN PLACE. BED LOCKED AND IN LOWEST POSITION, SIDE RAILS UP X3, BED ALARM ON, CALL LIGHT WITHIN REACH, WILL ENDORSE TO DAYSHIFT NURSE FOR CONTINUITY OF CARE.
[2019-03-17 06:55] LABS: CALCIUM, SERUM 8.6 mg/dL (8.5-10.1); CREATININE 1.2 mg/dL (0.6-1.3); POTASSIUM 3.4 mmol/L (3.5-5.1)
[2019-03-17 08:00] VITALS: BP 94/63
[2019-03-17] MEDS: HYDROCHLOROTHIAZIDE 25 MG TABLET PO SCH (09:00)
[2019-03-17] MEDS ORDERED: CEFTRIAXONE 2 G in IV D5W 100 ML IV SCH (09:00)
[2019-03-17] MEDS: LACTOBACILLUS RHAMNOSUS GG 1 EACH CAP.SPRINK GT SCH (09:34)
[2019-03-17] MEDS: LEVETIRACETAM (250 MG) 250 MG TABLET PO SCH (09:34)
[2019-03-17] MEDS: CLOTRIMAZOLE 1% 15 GM TUBE TP SCH (09:37)
[2019-03-17] MEDS: ESOMEPRAZOLE MAGNESIUM 40 MG SUSPDR.PKT GT SCH (09:37)
[2019-03-17] MEDS ORDERED: POTASSIUM CHLORIDE 20 MEQ POWDER PACKET GT SCH (11:00)
--- NOTE | 2019-03-17 14:01 | NUR ---
REPORT CALLED TO JU DYKES ([facility] )
--- NOTE | 2019-03-17 14:53 | NUR ---
RECEIVED CALL FROM JU DYKES (GENNA). REQUESTING PATIENT'S ACCOUNTS RECEIVABLE CLERK TIME AT 1700. 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
[2019-03-17 16:00] VITALS: BP 94/59
--- NOTE | 2019-03-17 17:52 | NUR ---
PATIENT D/C AND WILL BE TRANSFERRED TO [facility]. PT AWAKE, IN BED (BEDBOUND) A/O X1-2. ON SUPPLEMENTARY OXYGEN VIA NC AT 2LPM, WITH NO ACUTE RESPIRATORY DISTRESS NOTED. PT ABLE TO SPEAK. PT DENIES ANY PAIN OR DISCOMFORT AT THIS MOMENT. IV TO JENNA MIDLINE, INTACT AND FLUSHING WELL.PATIENT WILL CONTINUE ON IV ANTIBIOTIC IN FACILITY. PT KEPT COMFORTABLE, HOB ELEVATED, HIGH RISK ASPIRATION. D/C PICTURES TAKEN AND PLACED IN THE CHART. MED RECON FORM PROVIDED FOR FACILITY. PATIENT LEAVING WITH F/C IN PLACE PER MD. D/C INSTRUCTIONS PROVIFED AND SIGHED BY TWO NURSED DUE TO PT INABILITY TO SIGH. PATIENT HAS NO BELONGINGS, TAKEN BY FAMILY (PER INFORMATION IN VALUABLE FORM). aLL NEED ATTENDED BEFORE D/C. PATIENT PICKED UP BY AMBULANCE.
[2019-03-18] MEDS ORDERED: PANTOPRAZOLE 40 MG VIAL IV SCH (09:00)
== END 2019-03-17 17:25 | DRG 870 ==
LOC: ER 10:25 → ICU 11:06 → TELE 03-06 14:28 → MED 03-07 09:13
PROVIDERS: ADMIT Internal Medicine; ATTEND Internal Medicine
PROC: 5A1955Z Respiratory Ventilation, Greater than 96 Consecutive Hours (ICD-10-PCS; principal; 2019-02-22)
PROC: 0BH17EZ Insertion of Endotracheal Airway into Trachea, Via Natural or Artificial Opening (ICD-10-PCS; 2019-02-22)
PROC: 05H933Z Insertion of Infusion Device into Right Brachial Vein, Percutaneous Approach (ICD-10-PCS; 2019-03-01)
DX: A41.9 Sepsis, unspecified organism (principal); I21.A1 Myocardial infarction type 2; K72.00 Acute and subacute hepatic failure without coma; J96.01 Acute respiratory failure with hypoxia; E43 Unspecified severe protein-calorie malnutrition; K83.1 Obstruction of bile duct; G92 Toxic encephalopathy; J69.0 Pneumonitis due to inhalation of food and vomit; E87.2 Acidosis; N17.9 Acute kidney failure, unspecified; Z68.41 Body mass index [BMI] 40.0-44.9, adult; J98.11 Atelectasis; E87.1 Hypo-osmolality and hyponatremia; K56.7 Ileus, unspecified; I82.4Z2 Acute embolism and thrombosis of unspecified deep veins of left distal lower extremity; I82.412 Acute embolism and thrombosis of left femoral vein; I82.431 Acute embolism and thrombosis of right popliteal vein; D68.9 Coagulation defect, unspecified; L97.929 Non-pressure chronic ulcer of unspecified part of left lower leg with unspecified severity; K56.609 Unspecified intestinal obstruction, unspecified as to partial versus complete obstruction; R18.8 Other ascites; E87.0 Hyperosmolality and hypernatremia; E87.5 Hyperkalemia; G40.909 Epilepsy, unspecified, not intractable, without status epilepticus; F41.9 Anxiety disorder, unspecified; K21.9 Gastro-esophageal reflux disease without esophagitis; E86.0 Dehydration; Z79.01 Long term (current) use of anticoagulants; Z95.810 Presence of automatic (implantable) cardiac defibrillator; Z86.718 Personal history of other venous thrombosis and embolism; Z79.899 Other long term (current) drug therapy; Z22.322 Carrier or suspected carrier of Methicillin resistant Staphylococcus aureus; F32.9 Major depressive disorder, single episode, unspecified; E79.0 Hyperuricemia without signs of inflammatory arthritis and tophaceous disease; N40.0 Benign prostatic hyperplasia without lower urinary tract symptoms; D64.9 Anemia, unspecified; F20.9 Schizophrenia, unspecified; F03.90 Unspecified dementia, unspecified severity, without behavioral disturbance, psychotic disturbance, mood disturbance, and anxiety; F09 Unspecified mental disorder due to known physiological condition; I11.0 Hypertensive heart disease with heart failure; G47.00 Insomnia, unspecified; I50.9 Heart failure, unspecified; D69.6 Thrombocytopenia, unspecified; E11.9 Type 2 diabetes mellitus without complications; I67.2 Cerebral atherosclerosis; E66.01 Morbid (severe) obesity due to excess calories; R13.10 Dysphagia, unspecified; Z74.09 Other reduced mobility; K56.41 Fecal impaction; K29.70 Gastritis, unspecified, without bleeding; I70.0 Atherosclerosis of aorta; M51.36 Other intervertebral disc degeneration, lumbar region; Z68.28 Body mass index [BMI] 28.0-28.9, adult; I87.8 Other specified disorders of veins; L84 Corns and callosities; I48.91 Unspecified atrial fibrillation
CPT/HCPCS: 31720; 36415; 36569; 36600; 70450-TC; 71045-TC; 74018; 74250-TC; 76700-TC; 78226; 78582; 80048-TC; 80053-TC; 80061-TC; 80076-TC; 80162-TC; 80164-TC; 80202-TC; 81000-TC; 82105; 82140-TC; 82150-TC; 82247-TC; 82248-TC; 82533; 82550-TC; 82570-TC; 82728-TC; 82803-TC; 82962-TC; 83516; 83540-TC; 83605-TC; 83690-TC; 83735-TC; 83935-TC; 83970; 84100-TC; 84155; 84155-TC; 84165; 84300-TC; 84443-TC; 84484-TC; 84550-TC; 85025-TC; 85396; 85610-TC; 85730-TC; 86301; 86644; 86645; 86694; 86695; 86696; 86706; 86803; 86850-TC; 87040-TC; 87070-TC; 87081-TC; 87086-TC; 87186-TC; 87340; 92526; 92611-TC; 93307-TC; 93970-TC; 93979-TC; 94002-TC; 94003-TC; 94640-TC; 94760-TC; 94762-TC; 94799-TC; 97110-TC; 97112-TC; 97116-TC; 97530-TC; 99082-TC; A4216; A6403; A9537; A9540; A9567; C9113; G0378; G0480; J0278; J0330; J0696; J1160; J1940; J1953; J2185; J2405; J2543; J3370; J3475; J3480; J3490; J7030; J7040; J7042; J7050; J7060; J7070; Q9963